=== PATIENT | male | born 1950 | race Asian ===

== ENCOUNTER 2019-05-11 06:54 | Inpatient (IN) | payer MEDICAID ==
[~2019-05-11] VITALS: Ht 172.7 cm; Wt 68.0 kg
[2019-05-11] VITALS (11 sets, daily range): BP systolic 92–114; BP diastolic 57–68
--- NOTE | 2019-05-11 06:54 | NUR ---
PT [facility]. TAKEN TO BED 3
--- NOTE | 2019-05-11 06:55 | NUR ---
ERMD AT BEDSIDE , PUT ON VENTILATOR WITH SETTINGS OF TIDAL VOLUMR 450, PEEP +5 PS 10 , 2L , BS 122 MG/DL , WITH HX CHRONIC RESP FAILURE TRACHE TO VENT, SEIZURE DYSPHAGIA, GT FEEDING, UTI, PNA, ANXIETY, SUBDURAL HEMATOMA, WITH SUBARACHNOID HEMORRHAGE, S/P CRANIOTOMY, SKULL FRACTURE, HYPOGLYCEMIA,ON FULL CODE, NKDA Addendum: 05/11/19 at 0800 by [email or web address] NEUROLOGICAL AT BASE LINE. Addendum: 05/11/19 at 0923 by [email or web address] R PUPIL 4MM RTL, L PUPIL 3 MM RTL.
--- NOTE | 2019-05-11 07:14 | NUR ---
X-Ray at bedside.
--- NOTE | 2019-05-11 07:20 | NUR ---
TRACH PT BROUGHT IN TO THE ED AT 0655. PLACED PT ON VENT SETTINGS FROM FACILITY; SIMV 8,450,+5, PS 10, AND Fi02 OF 30%. PT HANDED OVER TO AM SHIFT TO CONTINUE CARE.
[2019-05-11] MEDS ORDERED: FAMO-90 GT (07:25)
[2019-05-11] MEDS ORDERED: KEP500L GT (07:25)
[2019-05-11] MEDS ORDERED: MVI WITH MINERALS GT (07:25)
[2019-05-11] MEDS ORDERED: ASCO500T45 GT (07:25)
[2019-05-11] MEDS ORDERED: METO25TA GT (07:25)
[2019-05-11] MEDS ORDERED: ZINC220C28 GT (07:25)
[2019-05-11] MEDS ORDERED: COL100L GT (07:25)
[2019-05-11] MEDS ORDERED: NOVN SUBQ (07:25)
--- NOTE | 2019-05-11 07:25 | NUR ---
Elisabeth hill in [facility] - 05/11/19 at 0958 by [email or web address] RECIVED REPORT FROM
--- NOTE | 2019-05-11 07:44 | NUR ---
LAB AT BEDSIDE.
[2019-05-11] MEDS ORDERED: VANCOMYCIN 1,000 MG in DEXTROSE 5% 250 ML IV ONE (07:45)
[2019-05-11] MEDS ORDERED: PIPERACILLIN/TAZOBACTAM 3.375 GM in DEXTROSE 5% 50 ML IV ONE (07:45)
[2019-05-11] MEDS ORDERED: ALTEPLASE 2 MG VIAL MC ONE (07:45)
[2019-05-11] MEDS ORDERED: NACL 0.9% 1,000 ML IV ONE ×2 (07:45→16:35)
[2019-05-11 08:03] LABS: BASOPHILS # (AUTO) 0.1 K/uL (0.00-0.22); BASOPHILS % (AUTO) 0.4 % (0.0-2.0); EOSINOPHILS # (AUTO) 0.1 K/uL (0-0.4); EOSINOPHILS % (AUTO) 0.4 % (0.0-4.0); HEMATOCRIT 27.9 % (36-52); HEMOGLOBIN 8.7 g/dL (12.0-18.0); LYMPHOCYTES # (AUTO) 0.6 K/uL (2.0-11.5); LYMPHOCYTES % (AUTO) 4.2 % (20.5-51.1); MEAN CORPUSCULAR HEMOGLOBIN 26 pg (27-31); MEAN CORPUSCULAR HGB CONC 31 g/dL (33-37); MEAN CORPUSCULAR VOLUME 82.8 fL (80-94); MONOCYTES # (AUTO) 0.7 K/uL (0.8-1.0); MONOCYTES % (AUTO) 4.5 % (1.7-9.3); NEUTROPHILS # (AUTO) 13.3 K/uL (1.8-7.7); NEUTROPHILS % (AUTO) 90.5 % (42.2-75.2); PLATELET COUNT (AUTO) 413 K/uL (140-450); RED BLOOD CELL COUNT(AUTO) 3.37 MIL/uL (4.20-6.10); RED CELL DISTRIBUTION WIDTH 15.8 % (11.6-13.7); WHITE BLOOD COUNT (AUTO) 14.7 K/uL (4.8-10.8)
[2019-05-11] MEDS ORDERED: PIPERACILLIN/TAZOBACTAM 3.375 GM VIAL IV ONE (08:03)
[2019-05-11] MEDS ORDERED: VANCOMYCIN 1,000 MG VIAL ONE (08:04)
[2019-05-11 08:09] LABS: BILIRUBIN,URINE NEGATIVE (NEGATIVE); BLOOD, URINE 3+ (NEGATIVE); COLOR,URINE YELLOW (YELLOW); NITRITE, URINE NEGATIVE (NEGATIVE); UGLUCOSE TRACE (NEGATIVE)
[2019-05-11 08:19] LABS: PROTHROMBIN TIME 10.5 secs (10.8-13.4)
[2019-05-11 08:42] LABS: ALBUMIN 1.7 g/dL (3.4-5.0); ANION GAP 9.2 (8-16); CARBON DIOXIDE 32.6 mmol/L (21-32); CREATININE 0.6 mg/dL (0.6-1.3); POTASSIUM 3.8 mmol/L (3.5-5.1); TOTAL BILIRUBIN 0.2 mg/dL (0.0-1.0)
[2019-05-11 08:48] LABS: APPEARANCE,URINE SLIGHTLY HAZY (CLEAR)
[2019-05-11 08:49] LABS: LEUKOCYTE ESTERASE ,URINE TRACE (NEGATIVE)
[2019-05-11 08:50] LABS: WBC,URINE 0-5 /HPF (0-5)
[2019-05-11 08:51] LABS: URINE AMORPHOUS URATE 1+ /HPF (None Seen)
[2019-05-11] MEDS ORDERED: DOCUSATE SODIUM 100 MG GELCAP PO PRN (09:30)
[2019-05-11] MEDS ORDERED: HYDROcodone/APAP 5/325 MG 1 TAB TAB PO PRN (09:30)
[2019-05-11] MEDS ORDERED: ACETAMINOPHEN 325 MG TAB PO PRN (09:30)
[2019-05-11] MEDS ORDERED: MORPHINE SULFATE 2 MG/ML SYR IVP PRN (09:30)
[2019-05-11] MEDS ORDERED: LORazepam 2 MG/ML VIAL IM/IVP PRN (09:30)
[2019-05-11] MEDS ORDERED: ZOLPIDEM 5 MG TAB PO PRN (09:30)
[2019-05-11] MEDS ORDERED: ONDANSETRON 4 MG/2 ML VIAL IM/IVP PRN (09:30)
--- NOTE | 2019-05-11 09:40 | NUR ---
called warehouse consultant left v-mail for tele bed
[2019-05-11 09:57] LABS: BARBITURATE, URINE NEG. ng/ml (NEG <=200); BENZODIAZEPINE, URINE NEG. ng/mL (NEG <=200); CANNABINOID, URINE NEG. ng/mL (NEG <=50); COCAINE, URINE NEG. ng/mL (NEG <=300); OPIATE, URINE NEG. ng/mL (NEG <=2000); PHENCYCLIDINE SCREEN,URINE NEG. ng/mL (NEG <=25)
--- NOTE | 2019-05-11 10:04 | NUR ---
pt on tele hold in er
[2019-05-11 10:05] LABS: CHOL/HDL RATIO 4.8 (1-4.5); FREE T4 (FREE THYROXINE) 1.26 ng/dL (0.76-1.46); MAGNESIUM 2.5 mg/dL (1.8-2.4); THYROID STIMULATING HORMONE 4.48 uIU/mL (0.34-3.74)
--- NOTE | 2019-05-11 10:05 | NUR ---
STABLE GOOD CHEST RISE DEEP TRACHEAL SUCTION FOR LARGE THICK PALE YELLOW SECRETIONS AIRWAY PATENT
[2019-05-11] MEDS: NACL 0.9% 1,000 ML IV SCH ×2 (10:13→21:14)
--- NOTE | 2019-05-11 11:30 | NUR ---
CHANGED POSITION TO RIGHT SIDE.
--- NOTE | 2019-05-11 11:36 | NUR ---
REPORTED GIVEN TO YOVANY CHARGE NURSE.
--- NOTE | 2019-05-11 12:11 | NUR ---
NO EVIDENCE OF PULMONARY DISTRESS OTED EQUAL CHEST RISE DEEP TRACHEAL SUCTIONG FOR MODERATE PALE YELLOW SECRETIONS AIRWAY PATENT Addendum: 05/11/19 at 1218 by MCACPA OTED = NOTED
--- NOTE | 2019-05-11 13:33 | NUR ---
CHANGED POSITION TO LEFT SIDE.
--- NOTE | 2019-05-11 14:30 | NUR ---
Patient will be admitted to care of DR HER. Admited to TELE. Will go to room 108B. Belongings list completed. Report to PRINCESS BURRELL.
--- NOTE | 2019-05-11 14:30 | NUR ---
RECEIVED PATIENT FROM ED NURSE RENZO VIA JAZMYNE. PATIENT IS AWAKE. RESPIRATIONS EVEN AND UNLABORED. VENTILATOR DEPENDENT. FI02: 28, VT: 450; RATE: 8; FLOW: 40; PEEP: 5, PS:10. RT IS AT BEDSIDE AT THIS TIME. LUNCH SOUNDS RHONCHI. VISIBLE CHEST RISE NOTED. ON TELE MONITORING. ABDOMEN SOFT, AND NONTENDER. G-TUBE IN PLACE, NO FEEDING RUNNING AT THIS TIME. DRESSING INTACT. SCAR FROM SURGERY IN THE LEFT ABDOMEN. SKIN TEAR IN THE LEFT EAR, PRESSURE ULCER IN THE SACRUM. ED NURSE TOOK PHOTOS. DRESSINGS DRY AND INTACT. RIGHT UPPER PICC LINE NOTED RUNNING NS WIDE OPEN. PATIENT IS BEDBOUND. FALL PRECAUTIONS: YELLOW BAND, YELLOW GOWN, YELLOW SOCKS, FALLING STAR POSTED OUTSIDE THE ROOM. BED IN LOW POSITION. CALL LIGHT IS WITHIN REACH. WILL CONTINUE TO MONITOR
--- NOTE | 2019-05-11 14:35 | NUR ---
VITAL SIGNS CHECK, MRSA NARES SWAB COLLECTED. BP IS 104/61, HR: 112, O2SAT 100, VENT. RESP 18, TEMP 98. WILL CONTINUE TO MONITOR
--- NOTE | 2019-05-11 14:40 | NUR ---
(LATE ENTRY) TRANSFERRED PATIENT TO [facility] 108-B REMOVED PATIENT FORM VENTILATOR PLACED ON SUPPLEMENTAL OXYGEN AT 15 LPM VIA E-TANK TO HME/INLINE SUCTION CATHETER/TRACH BAG DEPRESSION EVERY 6-8 SECONDS GOOD CHEST RISE TOLERATED TRANSFER WELL WITHOUT INCIDENT SATURATION 100% HR 110
--- NOTE | 2019-05-11 15:55 | NUR ---
BP IS 90/68, HR 106, O2SAT 100%. MADE AWARE TO DR. URIBE FOR BOLUS ORDER.
--- NOTE | 2019-05-11 15:58 | NUR ---
BOLUSING PATIENT WITH NS WIDE OPEN TO INCREASE BP WNL.
[2019-05-11] MEDS ORDERED: NACL 0.9% 1,000 ML IV SCH (16:00)
--- NOTE | 2019-05-11 16:00 | NUR ---
MADE AWARE TO DR. URIBE TO ORDER FNS AND WOUND CONSULT FOR LOW PARVEEN SCORE AND WOUNDS.
--- NOTE | 2019-05-11 16:01 | NUR ---
RESTING COMFORTABLE NO RESPIRATORY DISTRESS NOTED DEEP TRACHEAL SUCTION FOR SMALL THICK PALE YELLOW SECRETIONS AIRWY PATENT
--- NOTE | 2019-05-11 16:10 | NUR ---
RT IS AT BEDSIDE
--- NOTE | 2019-05-11 16:13 | NUR ---
VITAL SIGNS: BP: 97/81, HR: 105, O2SAT 100% VENT, RESP 18, TEMP 97.9. BP IS TRENDING UP.WILL CONTINUE TO MONITOR
[2019-05-11] MEDS ORDERED: DEXTROSE 50% 50 ML SYR IVP PRN (16:50)
--- NOTE | 2019-05-11 16:54 | NUR ---
PATIENT IS RESTING QUITELY AT THIS TIME. NO SIGNS OF DISTRESS NOTED. ASPIRATIONS, FALL, SEIZURE PRECAUTIONS IN PLACE. BED IN LOW POSITION. CALL LIGHT IS WITHIN REACH. VENTILATOR WORKING. WILL CONTINUE TO MONITOR
--- NOTE | 2019-05-11 16:55 | NUR ---
PATIENT'S BP NOW IS 107/64, HR 105, O2SAT 100%
--- NOTE | 2019-05-11 17:00 | NUR ---
DR. URIBE AND STUDENT IS AT BEDSIDE EXAMINING THE PATIENT
--- NOTE | 2019-05-11 17:20 | NUR ---
NEW BAG OF NS TO BOLUS PATIENT
--- NOTE | 2019-05-11 17:40 | NUR ---
STABLE NO SOB NOTED GOOD CHEST RISE DEEP TRACHEAL SUCTION FOR SMALL THIN PALE YELLOW SECRETIONS AIRWAY PATENT
--- NOTE | 2019-05-11 17:54 | NUR ---
BP NOW 114/69, HR 104, O2SAT 100% VENT. PATIENT IS SLEEPING COMFORTABLY. NO SIGNS OF DISTRESS NOTED. BED IN LOW POSITION. CALL LIGHT IS WITHIN REACH. WILL CONTINUE TO MONITOR
--- NOTE | 2019-05-11 18:40 | NUR ---
PATIENT IS SLEEPING COMFORTABLY AT THIS TIME. BP IS 109/65, HR 106, O2SAT 100% VENT. BED IN LOW POSITION. CALL LIGHT IS WITHIN REACH. WILL CONTINUE TO MONITOR
--- NOTE | 2019-05-11 18:46 | NUR ---
HYPEROXYGENATED PATIENT PRIOR TO DEEP SUCTIONING. SMALL YELLOW SECRETIONS CAME OUT. PATIENT O2SAT IS 100%, BP 106/68, HR: 108. WILL CONTINUE TO MONITOR
--- NOTE | 2019-05-11 19:12 | NUR ---
ENDORSED PATIENT TO THE SMART ENERGY SPECIALIST NURSE FOR CONTINUITY OF CARE. NO SOB. BED IN LOW POSITION. CALL LIGHT IS WITHIN REACH. PATIENT IS IN STABLE CONDITION
--- NOTE | 2019-05-11 19:13 | NUR ---
RECEIVED BEDSIDE REPORT FROM AM SHIFT NURSE. PATIENT IS LYING IN BED, RESTING WITH EYES CLOSED. NO SOB OR DISTRESS NOTED, ON TRACH TO MECHANICAL VENTILATOR. PICC LINE ON RIGHT UPPER ARM, PATENT, INTACT AND INFUSING WELL. PATIENT NOTED WITH LEFT EAR ABRASION AND SACRAL ULCER. G-TUBE IN PLACE. GIVENS CATHETER IN PLACE, DRAINING WELL. BOARD UPDATED. BED IN LOW, SAFETY MEASURES IN PLACE. SEIZURE PRECAUTIONS IN PLACE. CALL LIGHT PLACED WITHIN PATIENT REACH. WILL CONTINUE TO MONITOR PATIENT.
--- NOTE | 2019-05-11 19:23 | NUR ---
RECEIVED PT FROM DAY SHIFT ON SIMV 8,500,PS 10,+5, 28%. VENTILATOR PLUGGED INTO RED OUTLET. BMV AT HEAD OF BED. ALARMS AUDIBLE AND WORKING. TRACHEOSTOMY IS INTACT AND SECURED WITH A TRACH TIE. PT IS IN NO DISTRESS. WILL CONT TO MONITOR.
[2019-05-11] MEDS: INSULIN NPH HUMAN ISOPHANE 100 UNIT/ML VIAL SUBQ SCH (21:00)
[2019-05-11] MEDS: PIPERACILLIN/TAZOBACTAM 3.375 GM in DEXTROSE 5% 50 ML IV SCH (21:11)
[2019-05-11] MEDS: levETIRAcetam 100 MG/ML ORASYR GT SCH (21:18)
--- NOTE | 2019-05-11 21:33 | NUR ---
FAMILY MEMBERS AT BESIDE AT THIS TIME TO SEE PATIENT. PATIENT RESTING WITH EYES CLOSED. NO DISTRESS NOTED.
[2019-05-11] MEDS: BLOOD GLUCOSE MONITORING 1 DEV DEV FS SCH (21:35)
--- NOTE | 2019-05-11 21:37 | NUR ---
HUMULIN N HELD AT THIS TIME. PATIENT HAS A BLOOD GLUCOSE RESULT OF 108 AND PATIENT IS NOT ON FEEDING. WILL CONTINUE TO MONITOR PATIENT.
--- NOTE | 2019-05-11 22:30 | NUR ---
PATIENT CLEANED WITH CHG WIPES AND REPOSITIONED WITH CNAS AT THIS TIME.
[2019-05-11] MEDS: DEXT 5% /NACL 0.9% 1,000 ML IV SCH (23:24)
[2019-05-12] VITALS (17 sets, daily range): BP systolic 106–125; BP diastolic 62–72
--- NOTE | 2019-05-12 00:13 | NUR ---
VITAL SIGNS TAKEN AT THIS TIME. NO DISTRESS NOTED. WILL CONTINUE TO MONITOR PATIENT AT THIS TIME.
--- NOTE | 2019-05-12 02:19 | NUR ---
ROUNDS DONE AT THIS TIME. NO SOB OR DISTRESS NOTED. ON MECHANICAL VENTILATOR. CALL LIGHT WITHIN PATIENT REACH. WILL CONTINUE TO MONITOR PATIENT.
[2019-05-12] MEDS: PIPERACILLIN/TAZOBACTAM 3.375 GM in DEXTROSE 5% 50 ML IV SCH ×3 (04:58→21:57)
--- NOTE | 2019-05-12 05:10 | NUR ---
PT REMAINS ON DOCUMENTED SETTINGS. VENT PLUGGED INTO RED OUTLET. BMV AT HEAD OF BED. ALARMS AUDIBLE AND WORKING. TRACH IS SECURED AND INTACT. WILL CONT TO MONITOR
[2019-05-12] MEDS ORDERED: KCL 20 MEQ/WATER INJ PREMIX 200 ML IV PRN (05:35)
[2019-05-12] MEDS: INSULIN LISPRO SLIDING SCALE 100 UNITS/ML VIAL SUBQ PRN (06:33)
[2019-05-12] MEDS: BLOOD GLUCOSE MONITORING 1 DEV DEV FS SCH ×4 (06:33→21:56)
--- NOTE | 2019-05-12 06:35 | NUR ---
PATIENT HAD A BLOOD GLUCOSE RESULT OF 167 WITH 2 UNITS OF REGULAR HUMALOG INSULIN GIVEN AT THIS TIME. WILL CONTINUE TO MONITOR PATIENT.
--- NOTE | 2019-05-12 06:36 | NUR ---
PATIENT IN STABLE CONDITION. NO SOB OR DISTRESS NOTED. ON MECHANICAL VENTILATOR, TOLERATING SETTINGS WELL. CALL LIGHT PLACED WITHIN PATIENT REACH. WILL ENDORSE TO AM SHIFT NURSE FOR CONTINUITY OF CARE.
[2019-05-12 06:54] LABS: BASOPHILS # (AUTO) 0.1 K/uL (0.00-0.22); EOSINOPHILS # (AUTO) 0.1 K/uL (0-0.4); EOSINOPHILS % (AUTO) 0.8 % (0.0-4.0); HEMOGLOBIN 7.9 g/dL (12.0-18.0); LYMPHOCYTES # (AUTO) 1.3 K/uL (2.0-11.5); LYMPHOCYTES % (AUTO) 11.7 % (20.5-51.1); MEAN CORPUSCULAR HEMOGLOBIN 26 pg (27-31); MEAN CORPUSCULAR HGB CONC 32 g/dL (33-37); MEAN CORPUSCULAR VOLUME 82.5 fL (80-94); MONOCYTES # (AUTO) 0.5 K/uL (0.8-1.0); MONOCYTES % (AUTO) 4.7 % (1.7-9.3); NEUTROPHILS # (AUTO) 9.3 K/uL (1.8-7.7); NEUTROPHILS % (AUTO) 81.8 % (42.2-75.2); PLATELET COUNT (AUTO) 404 K/uL (140-450); RED BLOOD CELL COUNT(AUTO) 3.02 MIL/uL (4.20-6.10); RED CELL DISTRIBUTION WIDTH 16.3 % (11.6-13.7); WHITE BLOOD COUNT (AUTO) 11.3 K/uL (4.8-10.8)
--- NOTE | 2019-05-12 06:59 | NUR ---
RECEIVED ON A [employer]APE R860 VENTILATOR PLUGGED INTO RED OUTLET TOLERATING WELL WITHOUT INCIDENT TO A PORTEX DCT #8 AIRWAY SECURED WITH A EUSEBIO TRACH TIE CUFF PRESSURE CHECKED NOTED LLOC QUIET RESTING WELL WITHOUT PULMONARY DISTRESS NOTED GOOD CHEST RISE AND AERATION THROUGHOUT BILATERAL LUNG BARNES AIRWAY PATENT
--- NOTE | 2019-05-12 07:14 | NUR ---
RECEIVED BEDSIDE REPORT FROM PM RN PT ON TRACH TO VENT. RIGHT UPPER ARM PICC LINE IN PLACE. GIVENS CATH IN PLACE. GTUBE IN PLACE. NO TUBE FEEDING INFUSING AT THIS MOMENT. WAS INFORMED BY PM RN AWAITING FNS CONSULT. ALL SAFETY MEASURES ARE IN PLACE WILL CONTINUE TO MONITOR. VENT IN RED PLUG.
[2019-05-12 07:18] LABS: ANION GAP 12.6 (8-16); CARBON DIOXIDE 25.1 mmol/L (21-32); CREATININE 0.6 mg/dL (0.6-1.3)
[2019-05-12 07:25] LABS: MAGNESIUM 1.9 mg/dL (1.8-2.4); PHOSPHORUS 1.2 mg/dL (2.5-4.9)
[2019-05-12 07:30] LABS: POTASSIUM 2.7 mmol/L (3.5-5.1)
[2019-05-12] MEDS ORDERED: DEXTROSE 50% 50 ML SYR IVP PRN (07:50)
[2019-05-12] MEDS ORDERED: INSULIN LISPRO SLIDING SCALE 100 UNITS/ML VIAL SUBQ PRN (07:50)
[2019-05-12] MEDS: DEXT 5% /NACL 0.9% 1,000 ML IV SCH (08:00)
[2019-05-12] MEDS ORDERED: POTASSIUM CHLORIDE 40 MEQ, LIDOCAINE MPF 1% 25 MG in NACL 0.9% 250 ML IV SCH (08:30)
[2019-05-12] MEDS: levETIRAcetam 100 MG/ML ORASYR GT SCH ×2 (08:56→21:57)
[2019-05-12] MEDS: FAMOTIDINE 20 MG TAB GT SCH (08:56)
[2019-05-12] MEDS: LACTOBACILLUS RHAMNOSUS GG 1 EACH CAP GT SCH (08:56)
[2019-05-12] MEDS: INSULIN NPH HUMAN ISOPHANE 100 UNIT/ML VIAL SUBQ SCH ×2 (08:58→21:55)
--- NOTE | 2019-05-12 09:15 | NUR ---
MORNING MEDICATIONS ADMINISTERED VIA GTUBE. GTUBE FLUSHED AND PATENT. ALL SAFETY MEASURES ARE IN PLACE. PT RIGHT UPPER ARM PICC LINE INFUSING WITH NO SIGNS OF INFILTRATION OR INFLAMMATION. WILL CONTINUE TO MONITOR PATIENT.
--- NOTE | 2019-05-12 09:45 | NUR ---
RESTING COMFORTABLY NO EVIDENCE OF RESPIRATORY DISTRESS NOTED EQUAL CHEST RISE DEEP TRACHEAL SUCTION FOR MODERATE THICK PALE YELLOW SECRETIONS OROPHARYNX SUCTION FOR COPIOUS THICK GREEN SECRETIONS AIRWAY PATENT
--- NOTE | 2019-05-12 10:33 | NUR ---
PATIENT HAS BEEN SCREENED AND CATEGORIZED HIGH NUTRITION RISK. PATIENT WILL BE SEEN WITHIN 1-2 DAYS OF ADMISSION. 05/12/[address]
--- NOTE | 2019-05-12 11:01 | NUR ---
NO DISTRESS NOTED GOOD CHEST RISE AND AERATION THROUGHOUT BILATERAL LUNG BARNES AIRWAY PATENT
--- NOTE | 2019-05-12 11:24 | NUR ---
FREQUENT ROUNDING ON PT PT APPEARS STABLE AND IN NO APPARENT DISTRESS. ALL SAFETY MEASURES ARE IN PLACE WILL CONTINUE TO MONITOR.
[2019-05-12] MEDS ORDERED: BLOOD GLUCOSE MONITORING 1 DEV DEV FS SCH (11:30)
--- NOTE | 2019-05-12 13:00 | NUR ---
PT FINGERSTICK ACCU CHECK 47. ADMINISTERED D50 PER PRN ORDER. PT APHASIC. PT ON TELE MONITORING. WILL CONTINUE TO MONITOR PT FOR SIGNS AND SYMPTOMS OF HYPO AND HYPERGLYCEMIA. WILL REASSESS PT BLOOD SUGAR IN 30 MINUTES TO EVALUATE MEDICATION AFFECTS.
--- NOTE | 2019-05-12 13:45 | NUR ---
PT ASSESSMENT PT APPEARS STABLE AND IN NO APPARENT DISTRESS. ALL SAFETY MEASURES ARE IN PLACE VITALS WITHIN NORMAL LIMITS. WILL CONTINUE TO MONITOR.
--- NOTE | 2019-05-12 14:12 | NUR ---
NO APPARENT DISTRESS NOTED EQUAL CHEST RISE DEEP TRACHEAL SUCTION FOR MODERATE THICK PALE YELLOW SECRETIONS AIRWAY PATENT
[2019-05-12] MEDS ORDERED: VANCOMYCIN PER PHARMACY MC PRN (14:45)
[2019-05-12] MEDS ORDERED: ALBUTEROL SULFATE/IPRATROPIU 3 ML SOL IH PRN (14:45)
--- NOTE | 2019-05-12 15:34 | NUR ---
05/12/19 INITIAL ASSESSMENT COMPLETED PLEASE REFER TO NUTRITION ASSESSMENT UNDER CARE ACTIVITY FOR ESTIMATED NUTRITIONAL NEEDS. 1. RECOMMEND GLUCERNA 1.2 @ 70ML/HR. START RATE AT 25 ML/HR AND INCREASE BY 25 ML/HR Q4H UNTIL GOAL RATE IS ACHIEVED. -THIS WILL PROVIDE 1680 ML OF VOLUME, 2016 KCALS, AND 101 GMS OF PROTEIN. THIS IS MEETING 96% OF PTS CALORIC NEEDS AND 96% OF PTS PROTEIN NEEDS. 2. FREE WATER FLUSH: 165 ML Q6H 3. RECOMMEND [place]ITA BID 4. RD TO FOLLOW-UP 2-3 DAYS, HIGH RISK TAM ISLAS RD
--- NOTE | 2019-05-12 15:34 | NUR ---
FREQUENT ROUNDING ON PT PT APPEARS STABLE AND IN NO APPARENT DISTRESS. ALL SAFETY MEASURES ARE IN PLACE WILL CONTINUE TO MONITOR.
[2019-05-12] MEDS: VANCOMYCIN 1,000 MG in NACL 0.9% 250 ML IV SCH (15:40)
--- NOTE | 2019-05-12 15:58 | NUR ---
RESTING COMFORTABLE NO SOB NOTED DEEP TRACHEAL SUCTION FOR SMALL THICK PALE YELLOW SECRETIONS AIRWAY PATENT
--- NOTE | 2019-05-12 16:23 | NUR ---
FINGER STICK GLUCOSE 139. WITHIN NORMAL LIMITS. NO COVERAGE NEEDED PER SLIDING SCALE. WILL CONTINUE TO MONITOR PT.
--- NOTE | 2019-05-12 17:18 | NUR ---
GTUBE FEEDING STARTED. PT HEAD OF BED ELEVATED ABOVE 30 DEGREES. ADDITIONAL SUPPLEMENT ADMINISTERED VIA GTUBE. PT ON TRACH TO VENT PT RESTING COMFORTABLE/ PT ON CONTINOUS SPO2 MONITORING. GIVENS CATH IN PLACE. ALL SAFETY MEASURES ARE IN PLACE. WILL CONTINUE TO MONITOR.
--- NOTE | 2019-05-12 17:45 | NUR ---
STABLE RESTING WELL NO SOB NOTED GOOD CHEST RISE AIRWAY PATENT
[2019-05-12] MEDS: NACL 0.9% 1,000 ML IV SCH (18:28)
[2019-05-12] MEDS ORDERED: ACETYLCYSTEINE 10% (100 MG/ML) 100 MG/ML VIAL ONE (18:46)
[2019-05-12] MEDS: ALBUTEROL SULFATE/IPRATROPIU 3 ML SOL IH SCH (18:49)
[2019-05-12] MEDS: ACETYLCYSTEINE 10% (100 MG/ML) 100 MG/ML VIAL INH SCH (18:50)
--- NOTE | 2019-05-12 18:55 | NUR ---
RECEIVED PT FROM DAY SHIFT ON SIMV 8, 450,PS10,+5,28%. VENT PLUGGED INTO RED OUTLET. BMV AT HEAD OF BED. ALARMS AUDIBLE AND WORKING. TRACH PORTEX 8 IS SECURED AND INTACT. PT REMAINS COMFORTABLE. WILL CONT TO MONITOR
--- NOTE | 2019-05-12 19:31 | NUR ---
ENDORSED PT TO PM RN PT APPEARS STABLE AND IN NO APPARENT DISTRESS. ALL SAFETY ARE IN PLACE. TRACH TO VENT IN PLACE. GTUBE IN FUSING. HEAD OF BED ELEVATED ABOVE 30 DEGREES. RIGHT UPPER ARM PICC IN PLACE.
--- NOTE | 2019-05-12 19:32 | NUR ---
RECEIVED BEDSIDE REPORT FROM AM SHIFT NURSE. PATIENT IS LYING IN BED WITH EYES CLOSED. NO SOB OR DISTRESS NOTED. PATIENT IS TRACH TO MECHANICAL VENTILATOR, TOLERATED VENT SETTINGS WELL. IV ACCESS ON RIGHT UPPER ARM PICC LINE. GIVENS CATHETER IN PLACE, DRAINING WELL. G-TUBE IN PLACE, PATENT, INTACT AND INFUSING WELL. DRESSING NOTED ON LEFT EAR ABRASION AND ON SACRAL ULCER. BED IN LOW, SAFETY MEASURES IN PLACE. ON ASPIRATION AND SEIZURE PRECAUTION. CALL LIGHT WITHIN PATIENT REACH. WILL CONTINUE TO MONITOR PATIENT.
--- NOTE | 2019-05-12 21:03 | NUR ---
ROUTINE VENT CHECKED. SX SCANT AMOUNT OF THIN YELLOW SECRETION. PT REMAINS IN NO DISTRESS. WILL CONT TO MONITOR.
--- NOTE | 2019-05-12 21:52 | NUR ---
HUMULIN N NOT SCANNING, MANUAL INPUT DONE. VERIFIED BY RN, ELVIN. MNUREG
--- NOTE | 2019-05-12 21:56 | NUR ---
PATIENT HAD A BLOOD GLUCOSE RESULT OF 129 WITH NO INSULIN COVERAGE NEEDED AT THIS TIME.
--- NOTE | 2019-05-12 23:30 | NUR ---
ROUNDS DONE. NO DISTRESS NOTED. TOLERATING VENT SETTINGS WELL. WILL CONTINUE TO MONITOR PATIENT.
[2019-05-13] VITALS (11 sets, daily range): BP systolic 115–125; BP diastolic 66–80
--- NOTE | 2019-05-13 00:30 | NUR ---
VITALS TAKEN AT THIS TIME. NO DISTRESS NOTED. WILL CONTINUE TO MONITOR PATIENT.
--- NOTE | 2019-05-13 02:35 | NUR ---
ROUNDS DONE. PATIENT TOLERATING VENT SETTINGS WELL. NO SOB OR DISTRESS NOTED. WILL CONTINUE TO MONITOR PATIENT.
[2019-05-13] MEDS: VANCOMYCIN 1,000 MG in NACL 0.9% 250 ML IV SCH ×2 (02:58→15:23)
--- NOTE | 2019-05-13 04:20 | NUR ---
VITALS TAKEN AT THIS TIME. NO DISTRESS NOTED. CALL LIGHT WITHIN PATIENT REACH. WILL CONTINUE TO MONITOR PATIENT.
[2019-05-13] MEDS: PIPERACILLIN/TAZOBACTAM 3.375 GM in DEXTROSE 5% 50 ML IV SCH ×3 (04:59→20:38)
--- NOTE | 2019-05-13 05:11 | NUR ---
PT REMAINS ON DOCUMENTED SETTINGS. VENT PLUGGED INTO RED OUTLET. BMV AT HEAD OF BED. ALARMS AUDIBLE AND WORKING. TRACH IS SECURED AND INTACT. WILL ENDORSE PT TO DAY SHIFT
[2019-05-13 06:20] LABS: BASOPHILS # (AUTO) 0.1 K/uL (0.00-0.22); BASOPHILS % (AUTO) 0.6 % (0.0-2.0); EOSINOPHILS # (AUTO) 0.1 K/uL (0-0.4); EOSINOPHILS % (AUTO) 1.3 % (0.0-4.0); HEMATOCRIT 24.9 % (36-52); LYMPHOCYTES # (AUTO) 1.5 K/uL (2.0-11.5); LYMPHOCYTES % (AUTO) 13.6 % (20.5-51.1); MEAN CORPUSCULAR HEMOGLOBIN 26 pg (27-31); MEAN CORPUSCULAR HGB CONC 32 g/dL (33-37); MEAN CORPUSCULAR VOLUME 81.3 fL (80-94); MONOCYTES # (AUTO) 0.5 K/uL (0.8-1.0); MONOCYTES % (AUTO) 4.4 % (1.7-9.3); NEUTROPHILS # (AUTO) 8.9 K/uL (1.8-7.7); NEUTROPHILS % (AUTO) 80.1 % (42.2-75.2); PLATELET COUNT (AUTO) 452 K/uL (140-450); RED BLOOD CELL COUNT(AUTO) 3.07 MIL/uL (4.20-6.10); RED CELL DISTRIBUTION WIDTH 16.6 % (11.6-13.7); WHITE BLOOD COUNT (AUTO) 11.1 K/uL (4.8-10.8)
[2019-05-13 06:30] LABS: ANION GAP 9.3 (8-16); CARBON DIOXIDE 28.2 mmol/L (21-32); CREATININE 0.6 mg/dL (0.6-1.3); POTASSIUM 3.5 mmol/L (3.5-5.1)
[2019-05-13] MEDS: BLOOD GLUCOSE MONITORING 1 DEV DEV FS SCH ×4 (06:30→20:31)
[2019-05-13] MEDS: INSULIN LISPRO SLIDING SCALE 100 UNITS/ML VIAL SUBQ PRN (06:35)
--- NOTE | 2019-05-13 06:37 | NUR ---
PATIENT HAD A BLOOD GLUCOSE RESULT OF 156 WITH 2 UNITS OF REGULAR HUMALOG INSULIN ADMINISTERED. WILL CONTINUE TO MONITOR PATIENT.
--- NOTE | 2019-05-13 06:37 | NUR ---
PATIENT IN STABLE CONDITION. TOLERATING VENT SETTINGS WELL. WILL ENDORSE TO AM SHIFT NURSE FOR CONTINUITY OF CARE.
--- NOTE | 2019-05-13 07:12 | NUR ---
RECEIVED REPORT FROM NIGHT NURSE. PT IN BED ASLEEP, HEAD OF BED AT 30 DEGRESS, NO DISTRESS NOTED, FLACC 0. RESPIRATIONS EVEN AND UNLABORED ON TRACH TO VENT. LEFT EAR ABRASION PRESENT, COVERED WITH OPTIFOAM. BUTTOCKS PRESSURE ULCER PRESENT, OPTIFOAM DRESSING. IV IN PLACE PATENT AND ASYMPTOMATIC INFUSING PER ORDER IN R UA PICC LINE. GTUBE PRESENT WITH GLUCERNA 1.2 FEEDING PER ORDER. GIVENS IN PLACE. PT BEDBOUND. SAFETY MEASURES IN PLACE. CALL LIGHT WITHIN REACH. BED IN LOW POSITION. WILL CONTINUE TO MONITOR.
[2019-05-13] MEDS: ALBUTEROL SULFATE/IPRATROPIU 3 ML SOL IH SCH ×3 (07:32→19:32)
[2019-05-13] MEDS: ACETYLCYSTEINE 10% (100 MG/ML) 100 MG/ML VIAL INH SCH ×3 (07:33→19:32)
[2019-05-13] MEDS ORDERED: FUROSEMIDE 20 MG/2 ML VIAL IVP SCH (09:00)
[2019-05-13] MEDS: levETIRAcetam 100 MG/ML ORASYR GT SCH ×2 (09:11→20:37)
[2019-05-13] MEDS: INSULIN NPH HUMAN ISOPHANE 100 UNIT/ML VIAL SUBQ SCH ×2 (09:11→20:49)
[2019-05-13] MEDS: FAMOTIDINE 20 MG TAB GT SCH (09:11)
[2019-05-13] MEDS: LACTOBACILLUS RHAMNOSUS GG 1 EACH CAP GT SCH (09:11)
--- NOTE | 2019-05-13 09:19 | NUR ---
MEDICATIONS ADMINISTERED PER ORDER. PT TOLERATED WELL, NO DISTRESS NOTED. FLACC 0. SAFETY MEASURES IN PLACE. CALL LIGHT WITHIN REACH, WILL CONTINUE TO MONITOR.
--- NOTE | 2019-05-13 09:53 | NUR ---
FAMILY MEMBERS AT THE BEDSIDE, INFORMED OF PTS STATUS, FAMILY MEMBERS VERBALIZED UNDERSTANDING. PT IN STABLE CONDITION. NO DISTRESS NOTED. FLACC 0. WILL CONTINUE TO MONITOR.
--- NOTE | 2019-05-13 10:10 | NUR ---
WOUND CARE EVALUATION NOTE: REASON FOR EVALUATION: LOW PARVEEN SCALE AND SACRAL WOUND SKIN ASSESSMENT DONE WITH THIS 68 Y/O MALE PT ADMITTED FROM [facility] [place] [facility] WITH INITIAL DX DESATURATION TO 85%. PAST MEDICAL HX INCLUDES TRAUMATIC BRAIN INJURY WITH SUBARACHNOID HEMORRHAGE AND SUBDURAL HEMATOMA STATUS POST CRANIOTOMY, SEIZURE DISORDER, GERD AND DM. PT. ADMITTED WITH MULTIPLE PRESSURE ULCER WOUNDS, TRACH TO VENT AND G-TUBE. ALBUMIN 1.7.ALL ABOVE INFORMATION OBTAINED FROM ADMISSION H&P. PT IS AWAKE. SKIN IS WARM AND DRY, BLE NO HAIR GROWTH, NO EDEMA. DORSAL PEDAL PULSES PRESENT AND NORMAL. CAPILLARY REFILLED < 2 SEC. X 10 TOES. INCONTINENT OF BOWEL,F/C PATENT WITH MODERATE AMOUNT YELLOW COLOR URINE OUT PUT OBSERVED. PLAN OF CARE DISCUSSED WITH PRIMARY RN. POC AND COMORBIDITIES RELATED DELAY WOUND HEALING AND FURTHER SKIN BREAKS EXPLAINED TO COUSIN, ALL QUESTION ANSWERED. INTEGUMENTARY: -RIGHT PARIETAL S/P CRANIOTOMY HEALED SURGICAL SCAR, SOFT NON- BULGING -TRACH SITE KRISTIN STOMA SKIN DRY AND CLEAN. SKIN INTACT. - GT SITE KRISTIN STOMA WITH SKIN INTACT. -RIGHT LOWER ABDOMEN OLD HEALED SCAR HARD TO TOUCH -PRESSURE ULCER STAGE 4 ON SACROCOCCYX EXTENDED TO RIGHT AND LEFT INNER BUTTOCK, 5X10X0.2CM, IRREGULAR WOUND SHAPE WOUND BED WITH 30% OF DTI WITH MAROON IN COLOR, 70% OF GRANULATION TISSUE WITH MUSCLE OBSERVED, MOIST, NO ODOR, WOUND EDGE FLAT, KRISTIN-WOUND SKIN LIGHT PURPLE IN COLOR, MOIST AND DENUDED - PRESSURE ULCER UN-STAGEABLE, LEFT EAR 1X1CM DARK BROWN WOUND BED WITH KRISTIN WOUND 3X2CM DENUDED SKIN, MOIST NO ODOR -RIGHT AND LEFT HEELS DRY THICK CALLUS WITH MULTIPLE FISSURE RECOMMENDATIONS: -PAINT LEFT EAR AND RIGHT /LEFT HEELS WITH BETADINE SOLUTIONS BID AND NEPHROLOGIST, OFFLOADING LEFT EAR - CLEANSE SACRALCOCCYX, R/L BUTTOCKS WOUND CLEANSING SOLUTION AND APPLY THERAHONEY GEL COVER WITH DRY DRESSING QD AND PRN IF SOILING -APPLY HEEL PROTECTORS TO BOTH HEELS AT ALL TIMES -OFFLOAD BILATERAL HEELS BY PLACING PILLOWS UNDER CALVES UNLESS OTHERWISE CONTRAINDICATED -PRESSURE REDISTRIBUTION SURFACE THERAPY -TURN AND REPOSITION Q2H, OFFLOAD SACRALCOCCYX AND LEFT EAR BY POSITIONING WITH PILLOW RIGHT AND LEFT -CONTINUE TO FOLLOW RD RECOMMENDATIONS ALL ABOVE RECOMMENDATIONS DISCUSSED WITH PRIMARY RN. WILL FOLLOW UP PT Q7-10 DAYS. PLEASE CONTACT WOUND CARE NURSE FOR ANY QUESTION AND CHANGE OF WOUND CONDITION.
--- NOTE | 2019-05-13 10:34 | NUR ---
PT TRANSFERRED TO WOUND BED AT THIS TIME. NO DISTRESS NOTED, FLACC 0.
--- NOTE | 2019-05-13 10:55 | NUR ---
REQUESTED ORDER TO CHANGE GIVENS, DUE TO APPEARANCE OF HAVING BEEN IN PLACE FOR MANY DAYS, TUBING DIRTY, GLANS ALSO DIRTY. UPON REMOVAL OF GIVENS, THE TIP WAS VERY DIRTY WITH BUILD UP. NEW GIVENS INSERTED AT THIS TIME. WILL CONTINUE TO MONITOR.
--- NOTE | 2019-05-13 12:05 | NUR ---
DISCHARGE PLANNING: THIS IS A 68 Y/O MALE PATIENT FROM [facility] [place], WHO CAME IN DUE TO DESATURATION TO 85%. PAST MEDICAL HISTORY INCLUDE TRAUMATIC BRAIN INJURY WITH SUBARACHNOID HEMORRHAGE AND SUBDURAL HEMATOMA S/P CRANIOTOMY, SEIZURE DISORDER, GERD, DM AND HTN. INITIAL DIAGNOSIS OF PNEUMONIA. CURRENT LABS INCLUDE WBC 11.1, H/H 8.0/24.9, NA/K 142/3.5, BUN/CREA 15/0.6. BLOOD, URINE AND SPUTUM C/S PENDING. PULMO CONSULT IN PLACE. ON DEANA AND HÉCTOR. DC PLAN BACK TO [facility] [place] ONCE STABLE. Addendum: 05/13/19 at 1217 by Ginna Loo DC PLAN IS FOR THURSDAY, YULIANA OF [facility] [place] MADE AWARE. SHE STATED MAC WILL BE WORKING ON THURSDAY.WILL FOLLOW UP.
--- NOTE | 2019-05-13 12:46 | NUR ---
MEDICATIONS ADMINISTERED PER ORDER. PT TOLERATED WELL. NO DISTRESS NOTED, FLACC 0. WILL CONTINUE TO MONITOR.
[2019-05-13] MEDS: THERAHONEY GEL 42.5 GM TP SCH (13:00)
[2019-05-13] MEDS: GAUZE TP SCH (13:00)
--- NOTE | 2019-05-13 15:35 | NUR ---
PT DRESSING CHANGE DONE AT THIS TIME. PT TOLERATED WELL, NO DISTRESS NOTED. SAFETY MEASURES IN PLACE. WILL CONTINUE TO MONITOR.
--- NOTE | 2019-05-13 16:40 | NUR ---
BLOOD GLUCOSE CHECKED AT THIS TIME. BLOOD SUGAR IS 140, NO COVERAGE NEEDED. PT RESPIRATIONS EVEN AND UNLABORED ON TRACH TO VENT. NO DISTRESS NOTED. FLACC 0. WILL CONTINUE TO MONITOR.
--- NOTE | 2019-05-13 16:58 | NUR ---
CONTINUED TO MONITOR PT ON VENT WITH SETTINGS CHARTED BREATH SOUNDS PRESENT BILAT COARSE SXN PT WITH MIN AMT OFF WHITE SECS TRACH SITE SECURE AMBU BAG AT BEDSIDE VENT PLUGGED INTO RED OUTLET
[2019-05-13] MEDS: NACL 0.9% 1,000 ML IV SCH (18:00)
--- NOTE | 2019-05-13 18:24 | NUR ---
PT IN BED, WITH EYES CLOSED. RESPIRATIONS EVEN AND UNLABORED ON TRACH TO VENT O2 SAT 100%. NO DISTRESS NOTED, FLACC 0. SAFETY MEASURES IN PLACE. CALL LIGHT IN PLACE. WILL CONTINUE TO MONITOR.
--- NOTE | 2019-05-13 18:57 | NUR ---
WILL ENDORSE PT TO NIGHT NURSE FOR CONTINUITY OF CARE.
--- NOTE | 2019-05-13 19:30 | NUR ---
RECEIVED BEDSIDE REPORT FROM DAY SHIFT NURSE. TOOK OVER CARE OF PT. PT OPENS EYES SPONTANEOUSLY. PEERL. PT HAS DEPRESSED RIGHT CRANIUM. LEFT EAR ABRASION NOTED AND IS DRESSED. PT IS TRACH TO VENT. SIM VC FIO2 28% VT 450 PEEP 5. LUNG SOUNDS ARE CLEAR. EQUAL RISE AND FALL OF THE CHEST. S1 S2 ARE HEARD. G-TUBE NOTED. CONTINUOUS FEEDING GLUCERNA 1.2 70 ML W/ FWF 165 ML Q6HR. GASTRIC RESIDUAL AT 20 ML. BOWELS SOUNDS ARE PRESENT. RADIAL PULSES ARE PRESENT AND REGULAR. CAP REFILL <3 SECS. GIVENS CATHETER NOTED W/ YELLOW URINE NO SEDIMENTS. SCD IN PLACE. BED IS LOCKED IN LOWEST POSITION. LIFESAVING DEVICES ARE IN RED OUTLETS. CALL LIGHT IS IN REACH.
--- NOTE | 2019-05-13 19:33 | NUR ---
RECEIVED ON A [employer] Technology[employer]APE R860 VENTILATOR PLUGGED INTO RED OUTLET TOLERATING WELL WITHOUT ADVERSE REACTIONS NOTED TO A PORTEX DCT#8 AIRWAY CUFF PRESSURE CHECKED NOTED AMBU BAG AT HOB LOC NOT ALERT GOOD CHEST RISE DEEP TRACHEAL SUCTION FOR LARGE THICK PALE YELLOW SECRETIONS OROPHARYNX SUCTION BY RN FOR COPIOUS THICK YELLOW SECRETIONS AIRWAY PATENT
--- NOTE | 2019-05-13 20:48 | NUR ---
DUE MEDICATION ADMINISTERED, PT TOLERATED WELL, NO DISTRESS NOTED, CALL LIGHT WITHIN REACH, WILL CONTINUE TO MONITOR.
--- NOTE | 2019-05-13 21:37 | NUR ---
STABLE NO RESPIRATORY DISTRESS NOTED GOOD CHEST RISE
--- NOTE | 2019-05-13 23:28 | NUR ---
GOOD CHEST RISE DEEP TRACHEAL SUCTION FOR SMALL THIN PALE YELLOW SECRETIONS AIRWAY PATENT
--- NOTE | 2019-05-13 23:30 | NUR ---
PT HR 125, BLOOD SUGAR CHECKED 168, TEMPERATURE CHECKED 98.7, BP 119/71, PT DIAPHORETIC, NOTIFIED DR. ELIUD DR STATED TO CONTINUE TO MONITOR PT, PT STABLE, NO DISTRESS NOTED, CALL LIGHT WITHIN REACH, WILL CONTINUE TO MONITOR.
[2019-05-14] VITALS (12 sets, daily range): BP systolic 116–137; BP diastolic 71–78
[2019-05-14] MEDS: GAUZE TP SCH ×2 (01:20→13:16)
--- NOTE | 2019-05-14 02:04 | NUR ---
TOLERATING VENTILATORY SUPPORT WELL GOOD CHEST RIDE
--- NOTE | 2019-05-14 02:30 | NUR ---
PT IS DIAPHORETIC. TEMP 100.1. WILL INITIATE COOLING MEASURES.
--- NOTE | 2019-05-14 03:00 | NUR ---
CHANGED LINENS, CLEANED PT, PROVIDED GIVENS CATHETER CARE, APPLIED HEEL PADS. CLEANED LEFT EAR WOUND
--- NOTE | 2019-05-14 03:16 | NUR ---
REASSESSED COOLING MEASURE INTERVENTIONS. TEMP IS 98.6
[2019-05-14] MEDS: VANCOMYCIN 1,000 MG in NACL 0.9% 250 ML IV SCH (03:26)
--- NOTE | 2019-05-14 03:45 | NUR ---
RESTING COMFORTABLY NO DISTRESS NOTED EQUAL CHEST RISE DEEP TRACHEAL SUCTION FOR LARGE THICK PALE YELLOW SECRETIONS OROPHARYNX SUCTION FOR MODERATE THICK PALE YELLOW SECRETIONS AIRWAY PATENT
[2019-05-14] MEDS: BLOOD GLUCOSE MONITORING 1 DEV DEV FS SCH ×4 (05:09→20:46)
--- NOTE | 2019-05-14 05:13 | NUR ---
NO PULMONARY DISTRESS NOTED GOOD CHEST RISE AND AERATION THROUGHOUT BILATERAL LUNG BARNES AIRWAY PATENT
[2019-05-14] MEDS: PIPERACILLIN/TAZOBACTAM 3.375 GM in DEXTROSE 5% 50 ML IV SCH ×3 (05:21→20:39)
[2019-05-14 05:53] LABS: ANION GAP 9.2 (8-16); CARBON DIOXIDE 28.8 mmol/L (21-32); CREATININE 0.5 mg/dL (0.6-1.3)
[2019-05-14 06:43] LABS: BASOPHILS # (AUTO) 0.1 K/uL (0.00-0.22); BASOPHILS % (AUTO) 0.5 % (0.0-2.0); EOSINOPHILS # (AUTO) 0.1 K/uL (0-0.4); EOSINOPHILS % (AUTO) 0.8 % (0.0-4.0); HEMATOCRIT 24.6 % (36-52); HEMOGLOBIN 7.7 g/dL (12.0-18.0); LYMPHOCYTES # (AUTO) 1.6 K/uL (2.0-11.5); LYMPHOCYTES % (AUTO) 10.9 % (20.5-51.1); MEAN CORPUSCULAR HEMOGLOBIN 26 pg (27-31); MEAN CORPUSCULAR HGB CONC 32 g/dL (33-37); MEAN CORPUSCULAR VOLUME 82.6 fL (80-94); MONOCYTES # (AUTO) 0.5 K/uL (0.8-1.0); MONOCYTES % (AUTO) 3.6 % (1.7-9.3); NEUTROPHILS # (AUTO) 12.6 K/uL (1.8-7.7); NEUTROPHILS % (AUTO) 84.2 % (42.2-75.2); PLATELET COUNT (AUTO) 458 K/uL (140-450); RED BLOOD CELL COUNT(AUTO) 2.98 MIL/uL (4.20-6.10); RED CELL DISTRIBUTION WIDTH 16.7 % (11.6-13.7)
[2019-05-14] MEDS: ACETYLCYSTEINE 10% (100 MG/ML) 100 MG/ML VIAL INH SCH ×3 (07:00→19:09)
[2019-05-14] MEDS: ALBUTEROL SULFATE/IPRATROPIU 3 ML SOL IH SCH ×3 (07:00→19:09)
--- NOTE | 2019-05-14 07:22 | NUR ---
ENDORSED PT TO DAY SHIFT NURSE SLADE RN, PT STABLE, NO DISTRESS NOTED, CALL LIGHT WITHIN REACH.
--- NOTE | 2019-05-14 07:24 | NUR ---
RECEIVED BEDSIDE REPORT FROM CUP[facility] CHARGER NURSE ROSETTE FOR CONTINUITY OF CARE. PT IS RESTING ON BED. RT BY BEDSIDE AT THIS TIME. PT IS VENTILATED. RESPIRATION EVEN AND UNLABORED ON TRACH TO VENT, SETTING SIMVVC, FIO2 28%, VT 450 ML, RATE 8/MIN, 40 L/MIN, PEEP 5, PS 10 CM H2O. FLACC 0. NO SIGNS OF DISTRESS NOTED. KAYLEY PICC LINE DOUBLE LUMEN IN PLACE, CLEAN AND INTACT, INFUSING PER MD ORDER. SACRAL WOUND, L EAR PRESSURE ULCER, BILATERAL HEELS CALLUSES NOTED, SACRAL WOUND COVERED WITH DRESSING, CLEAN AND DRY, L EAR RAIL CREW MEMBER, AND HEEL PROTECTORS ON BILATERALLY. G-TUBE IN PLACE AND INFUSING GLUCERNA 1.2 AT 70 ML/HR. PT IS INCONTINENT AND BEDREST. GIVENS IN PLACE AND DRAINING YELLOW URINE WITH GRAVITY. DISCUSSES PLAN OF CARE WITH PT AND PT REINFORCEMENT NEEDED. TELE MONITOR ATTACHED. SAFETY MEASURES IN PLACE. BED IN LOW POSITION AND CALL LIGHT WITHIN REACH. BED ALARM ACTIVATED.
--- NOTE | 2019-05-14 09:14 | NUR ---
05/14/19 RD FOLLOW UP COMPLETED PLEASE REFER TO NUTRITION PROGRESS NOTE UNDER CARE ACTIVITY FOR ESTIMATED NUTRITION NEEDS. RD RECOMMENDATIONS: 1. CONTINUE GLUCERNA 1.2 @ 70ML/HR TOLERATED -THIS WILL PROVIDE 1680 ML OF VOLUME, 2016 KCALS, AND 101 GMS OF PROTEIN. THIS IS MEETING 96% OF PTS CALORIC NEEDS AND 96% OF PTS PROTEIN NEEDS. 2. CONTINUE FREE WATER FLUSH: 165 ML Q6H TOLERATED 3. CONTINUE RECOMMEND CONCHITA BID TOLERATED. THIS WILL PROVIDE [address] TO FOLLOW-UP 2-3 DAYS, HIGH RISK HANSA FUNES, MS, RDN
[2019-05-14] MEDS: levETIRAcetam 100 MG/ML ORASYR GT SCH ×2 (09:58→20:39)
[2019-05-14] MEDS: LACTOBACILLUS RHAMNOSUS GG 1 EACH CAP GT SCH (09:59)
[2019-05-14] MEDS: FAMOTIDINE 20 MG TAB GT SCH (09:59)
[2019-05-14] MEDS: INSULIN NPH HUMAN ISOPHANE 100 UNIT/ML VIAL SUBQ SCH ×2 (10:01→20:46)
--- NOTE | 2019-05-14 10:01 | NUR ---
CHECKED BLOOD GLUCOSE AND RECEIVED 157. CHECKED G-TUBE RESIDUAL AND RECEIVED < 5 ML. ADMINISTERED SCHEDULED MEDS PER MD ORDER, MEDS EDUCATION PROVIDED AND REINFORCEMENT NEEDED DUE TO PT'S MENTAL STATUS, PT TOLERATED MEDS WELL WITH G-TUBE. RESPIRATION EVEN AND UNLABORED ON TRACH TO VENT, SPO2 AT 100%. FLACC 0. NO SIGNS OF DISTRESS NOTED. WIPED PT WITH CHG TOWELS ON UPPER EXTREMITIES, CHEST, AND LOWER EXTREMITIES, PT TOLERATED WELL. TELE MONITOR ATTACHED. SAFETY MEASURES IN PLACE. SCD AND HEEL PROTECTORS ON BILATERALLY. BED IN LOW POSITION AND CALL LIGHT WITHIN REACH. BED ALARM ACTIVATED.
--- NOTE | 2019-05-14 10:45 | NUR ---
PROVIDED AM ORAL HYGIENE, PT TOLERATED WELL. NO SIGNS OF DISTRESS NOTED. TELE MONITOR ATTACHED. SAFETY MEASURES IN PLACE. HOB ELEVATED TO 30 DEGREE, BED ALARM ACTIVATED.
--- NOTE | 2019-05-14 11:11 | NUR ---
COLLECTED URINE CULTURE FROM GIVENS PORT. PT IS RESTING ON BED WITH EYES OPEN. FLACC 0. RESPIRATION EVEN AND UNLABORED ON TRACH TO VENT, SPO2 AT 100% AT THIS TIME. NO SIGNS OF DISTRESS NOTED. TELE MONITOR ATTACHED. SAFETY MEASURES IN PLACE. SEIZURE PRECAUTION IN PLACE AND BED ALARM ACTIVATED.
[2019-05-14] MEDS: INSULIN LISPRO SLIDING SCALE 100 UNITS/ML VIAL SUBQ PRN (12:07)
--- NOTE | 2019-05-14 12:07 | NUR ---
ADMINISTERED 2 UNITS OF HUMALOG FOR BLOOD GLUCOSE 157, MED ED PROVIDED AND REINFORCEMENT NEEDED. PT AWAKE AND RESTING ON BED WITH BOTH EYES OPEN. FLACC 0. NO SIGNS OF DISTRESS NOTED. TELE MONITOR ATTACHED. SAFETY MEASURES IN PLACE. BED IN LOW POSITION AND CALL LIGHT WITHIN REACH. BED ALARM ACTIVATED.
[2019-05-14] MEDS: THERAHONEY GEL 42.5 GM TP SCH (13:17)
--- NOTE | 2019-05-14 13:17 | NUR ---
ADMINISTERED ZOSYN PER MD ORDER, MED ED PROVIDED TO PT AND REINFORCEMENT NEEDED. WITH ASSIST FROM FOUNDATION ENGINEER, PERFORMED WOUND CARE, CHANGED DRESSING ON SACRAL WITH THERAHONEY, PAINTED L EAR AND L HEEL WITH BETADINE SOLUTION, PT TOLERATED WELL. OFFLOADED PRESSURE AREA WITH PILLOW. APPLIED SCD AND HEEL PROTECTORS BILATERALLY. NO SIGNS OF DISTRESS NOTED. TELE MONITOR ATTACHED. SAFETY MEASURES IN PLACE.
--- NOTE | 2019-05-14 14:09 | NUR ---
VISITORS ARE BY BEDSIDE. NO SIGNS OF DISTRESS NOTE. TELE MONITOR ATTACHED. SAFETY MEASURES IN PLACE. BED ALARM ACTIVATED AND WOUND BED ON.
--- NOTE | 2019-05-14 15:05 | NUR ---
CALLED [facility] AND SPOKE WITH MAMADOU TO VERIFY PT'S VACCINATION STATUS. PER MAMADOU, PT GOT ACCEPTED INTO HER FACITLY ON THE AND THEY DIDN'T ADMINISTER ANY VACCINES. SHE WILL LOOK THROUGH PT'S CHART AND CALL BACK. PROVIDED A CALL BACK NUMBER.
--- NOTE | 2019-05-14 15:09 | NUR ---
PT IS RESTING ON BED. EVEN AND UNLABORED CHEST RISES NOTED. FLACC 0. NO SIGNS OF DISTRESS NOTED. TELE MONITOR ATTACHED. SAFETY MEASURES IN PLACE.
--- NOTE | 2019-05-14 15:11 | NUR ---
RECEIVED VANCOMYCIN TROUGH FROM LAB 20.5. NOTIFIED PHARMACIST AND SHE WILL ADJUST THE DOSE.
--- NOTE | 2019-05-14 16:20 | NUR ---
CHECKED BLOOD GLUCOSE AND RECEIVED 99, NO INSULIN COVERAGE NEEDED.
--- NOTE | 2019-05-14 16:38 | NUR ---
CHANGED ALL TUBING. HUNG A NEW BOTTLE OF GLUCERNA 1.2 AND RUNNING PER MD ORDER, 70 ML/HR AND WATER FLUSH 165 ML/ Q6H, CHECKED G-TUBE RESIDUAL AND RECEIVED < 5 ML.
--- NOTE | 2019-05-14 17:32 | NUR ---
ASSISTED SCOOP DRIVER TO REPOSITION PT TO HIS R LATERAL SIDE, OFF LOADED PRESSURE WITH PILLOWS. SCD AND HEEL PROTECTORS IN PLACE BILATERALLY. PT TOLERATED WELL. NO SIGNS OF DISTRESS NOTED. TELE MONITOR ATTACHED. SAFETY MEASURES IN PLACE. SEIZURE PRECAUTION AND BED ALARM IN PLACE.
--- NOTE | 2019-05-14 17:59 | NUR ---
RECEIVED A CALL BACK FROM IMELDA AT [facility] [place]. PER IMELDA, PT ARRIVED ON THE FACILITY ON 05/06 AND FAMILY GAVE CONSENT TO ADMINISTER PNA AND FLU VACCINATION, BUT DUE TO PT GOT ADMIT TO THE HOSPITAL, THEY HAVEN'T ADMINISTER ANY VACCINE TO PT.
[2019-05-14] MEDS: NACL 0.9% 1,000 ML IV SCH (18:25)
--- NOTE | 2019-05-14 19:10 | NUR ---
RECEIVED PT FROM DAY SHIFT ON SIMV 8.450,PS 10,+5,24%. VENT PLUGGED INTO RED OUTLET. ALARMS AUDIBLE AND WORKING.BMV AT HEAD OF BED. TRACH PORTEX 8 IS SECURED AND INTACT. TX GIVEN. PT APPEARS IN NO DISTRESS. WILL CONT TO MONITOR
--- NOTE | 2019-05-14 19:14 | NUR ---
ENDORSED PT AT BEDSIDE TO CANDY BUTCHER NURSE KISSES FOR CONTINUITY OF CARE. PT IS RESTING ON BED. RESPIRATION EVEN AND UNLABORED ON TRACH TO VENT, FLACC 0. NO SIGNS OF DISTRESS NOTED. PT IS IN STABLE CONDITION. TELE MONITOR ATTACHED. SAFETY MEASURES IN PLACE. BED ALARM ACTIVATED.
--- NOTE | 2019-05-14 19:32 | NUR ---
RECEIVED BEDSIDE REPORT FROM DAY SHIFT NURSE. PATIENT IS ASLEEP, AROUSABLE BY TOUCH. RESPIRATION EVEN UNLABORED ON TRACH TO VENT. NO DISTRESS NOTED. SKIN IS WARM AND DRY. RIGHT UPPER ARM PICC LINE NOTED. PATENT AND INTACT. GIVENS CATHETER DRAINING YELLOW URINE NOTED. G-TUBE FEEDING NOTED. PLAN OF CARE WAS UP TO DATE. ALL SAFETY MEASURES IN PLACE. BED IS AT LOW POSITION. CALL LIGHT WITHIN REACH. WILL CONTINUE TO MONITOR.
--- NOTE | 2019-05-14 20:10 | NUR ---
INITIAL ASSESSMENT DONE. VITALS WERE TAKEN. CHECKED G-TUBE RESIDUAL. OBTAINED 10CC. WILL CONTINUE TO MONITOR.
--- NOTE | 2019-05-14 20:40 | NUR ---
ALL SCHEDULED MEDS WERE GIVEN. HUMILIN N SCHEDULED GIVEN PER ODER. WILL CONTINUE TO MONITOR.
--- NOTE | 2019-05-14 22:27 | NUR ---
ROUTINE VENT CHECK. PT REMAINS STABLE AND IS IN NO DISTRESS. WILL CONT TO MONITOR
--- NOTE | 2019-05-14 22:54 | NUR ---
SUCTIONED PATIENT. SMALL AMOUNT WHITE SECRETION OBTAINED. WILL CONTINUE TO MONITOR.
--- NOTE | 2019-05-14 23:10 | NUR ---
PATIENT RESPIRATION EVEN UNLABORED ON TRACH TO VENT. RESPIRATION 30 BPM. NOT IN DISTRESS. CHECKED PATIENT VITALS. BP 120/75 HR 120 TEMP 98.8 AXILLARY. SPO2 100%. NOTIFIED MD. RECEIVED ORDER TO GIVE PATIENT BREATHING TREATMENT. CALLED RT FOR THE BREATHING TX. WILL CONTINUE TO MONITOR.
--- NOTE | 2019-05-14 23:15 | NUR ---
CALLED BY ASHANTI ZHANG TO ASSESS PATIENT BEING TACHYPNEIC AND DR. VILLAFANA RECCOMENDED BREATHING TX. ASSESSED THE PT AND PATIENT WAS IN NO DISTRESS. RR 27. SATURATION WAS 100%. B/S WERE COURSE BILATERALLY BUT HEARD SOME GOOD AERATION. PT TENDS TO BECOME TACHYPNEIC WHEN SUCTIONED. WILL CONT TO MONITOR
[2019-05-15] VITALS: BP 115/73
--- NOTE | 2019-05-15 | NUR ---
CHECKED PATIENT VITALS BP 115/73 HR 116 TEMP 98.7 RR 24 PATIENT IS IN STABLE CONDITION. NO DISTRESS NOTED. WILL CONTINUE TO MONITOR.
[2019-05-15 01:18] VITALS: BP 126/70
[2019-05-15] MEDS: GAUZE TP SCH ×2 (01:19→12:22)
--- NOTE | 2019-05-15 01:38 | NUR ---
PATIENT IS AWAKE, TACHYPNEA BREATHING 32BPM HR 120 BP 130/75 SPO2 100% TEMP 98.5 AXILLARY. PER MD ITS OKAY TO GIVE PAIN MEDS.
--- NOTE | 2019-05-15 02:37 | NUR ---
RECHECKED PATIENT. PATIENT IS SLEEPING RESPIRATION EVEN UNLABORED ON TRACH TO VENT. VITALS WERE TAKEN. BP 118/75 HR 116 RR 24 TEMP 98.5 AXILLARY SPO2 100%.
[2019-05-15 04:00] VITALS: BP 126/73
--- NOTE | 2019-05-15 04:10 | NUR ---
VITALS WERE TAKEN. PATIENT IS IN STABLE CONDITION. G-TUBE FEEDING CHANGED. RUNNING AT 70CC/HR. TOLERATING IT WELL. CHECKED RESIDUAL. OBTAINED 10CC. WILL CONTINUE TO MONITOR.
--- NOTE | 2019-05-15 04:21 | NUR ---
PROVIDE PATIENT GOOD PERICARE AND GIVENS CATHETER CARE.
[2019-05-15] MEDS: PIPERACILLIN/TAZOBACTAM 3.375 GM in DEXTROSE 5% 50 ML IV SCH ×2 (04:44→12:07)
--- NOTE | 2019-05-15 05:05 | NUR ---
pt remains on documented setting. vent plugged into red outlet. bmv at head of bed. alarms audible and working. trach is secured and intact. trach care completed. pt appears in no distress. will cont to monitor
[2019-05-15] MEDS ORDERED: VANCOMYCIN 1,000 MG in NACL 0.9% 250 ML IV SCH (06:00)
[2019-05-15 06:03] LABS: BASOPHILS # (AUTO) 0.1 K/uL (0.00-0.22); BASOPHILS % (AUTO) 0.5 % (0.0-2.0); EOSINOPHILS # (AUTO) 0.2 K/uL (0-0.4); EOSINOPHILS % (AUTO) 1.2 % (0.0-4.0); HEMATOCRIT 25.4 % (36-52); HEMOGLOBIN 8.4 g/dL (12.0-18.0); LYMPHOCYTES # (AUTO) 1.5 K/uL (2.0-11.5); LYMPHOCYTES % (AUTO) 11.4 % (20.5-51.1); MEAN CORPUSCULAR HEMOGLOBIN 27 pg (27-31); MEAN CORPUSCULAR HGB CONC 33 g/dL (33-37); MEAN CORPUSCULAR VOLUME 81.7 fL (80-94); MONOCYTES # (AUTO) 0.4 K/uL (0.8-1.0); MONOCYTES % (AUTO) 3.4 % (1.7-9.3); NEUTROPHILS # (AUTO) 10.9 K/uL (1.8-7.7); NEUTROPHILS % (AUTO) 83.5 % (42.2-75.2); PLATELET COUNT (AUTO) 453 K/uL (140-450); RED BLOOD CELL COUNT(AUTO) 3.11 MIL/uL (4.20-6.10); RED CELL DISTRIBUTION WIDTH 17.6 % (11.6-13.7); WHITE BLOOD COUNT (AUTO) 13.1 K/uL (4.8-10.8)
--- NOTE | 2019-05-15 06:11 | NUR ---
SPOKE TO MAMADOU FROM [facility] REGARDING ABOUT IV VANCOMYCIN MEDICATION THAT IS DUE AT 6AM. PATIENT VANCO TROUGH WAS DRAWN YESTERDAY AND RESULT IS 20.5. PER MAMADOU ITS OKAY TO GIVE JUST FOLLOW UP WITH THE PHARMACY FOR THE NEXT VANCO TROUGH. NOTIFIED WITH . SAID ITS OKAY TO GIVE.
[2019-05-15 06:31] LABS: ANION GAP 8.2 (8-16); CARBON DIOXIDE 29.8 mmol/L (21-32); CREATININE 0.6 mg/dL (0.6-1.3); MAGNESIUM 2.1 mg/dL (1.8-2.4); PHOSPHORUS 3.4 mg/dL (2.5-4.9)
[2019-05-15] MEDS: BLOOD GLUCOSE MONITORING 1 DEV DEV FS SCH ×2 (06:53→12:22)
[2019-05-15] MEDS: ALBUTEROL SULFATE/IPRATROPIU 3 ML SOL IH SCH ×2 (07:14→13:17)
[2019-05-15] MEDS: ACETYLCYSTEINE 10% (100 MG/ML) 100 MG/ML VIAL INH SCH ×2 (07:14→13:17)
--- NOTE | 2019-05-15 07:14 | NUR ---
RECEIVED ON A [employer]APE R860 VENTILATOR PLUGGED INTO RED OUTLET TOLERATING WELL WITHOUT INCIDENT TO A PORTEX DCT #8 AIRWAY SECURED WITH A EUSEBIO TRAC TIE CUFF PRESSURE CHECKED NOTED LOC QUIET RESPONSIVE TO STIMULUS IE:SUCTIONING AMBU BAG NOTED AT HON EQUAL CHEST RISE DEEP TRACHEAL SUCTIONING FOR MODERATE THICK PALE YELLOW SECRETIONS AIRWAY PATENT
--- NOTE | 2019-05-15 07:26 | NUR ---
ENDORSED PATIENT TO DAY SHIFT NURSE. PATIENT IS IN STABLE CONDITION
--- NOTE | 2019-05-15 07:27 | NUR ---
RECEIVED BEDSIDE REPORT FROM DEICER INSPECTOR ELECTRIC NURSE FOR CONTINUITY OF CARE. PATIENT IS ASLEEP, AROUSABLE BY TOUCH. RESPIRATION EVEN UNLABORED ON TRACH TO VENT. NO DISTRESS NOTED. SKIN IS WARM AND DRY. RIGHT UPPER ARM PICC LINE NOTED INFUSING IVF WELL, PATENT AND INTACT, DRESSING CLEAN AND DRY. GIVENS CATHETER DRAINING YELLOW URINE NOTED. G-TUBE FEEDING NOTED. UPDATED BOARD. UPDATED PATIENT WITH PLAN OF CARE. PATIENT UNABLE TO VERBALIZE UNDERSTANDING. PATIENT ON WOUND BED WITH HEEL PROTECTORS. SAFETY, ASPIRATION, AND SEIZURE PRECAUTIONS IN PLACE. BED IS AT LOW POSITION WITH ALARM AND BRAKES ON. CALL LIGHT WITHIN REACH. WILL CONTINUE TO MONITOR.
[2019-05-15 08:00] VITALS: BP 116/73
[2019-05-15] MEDS ORDERED: CRUSHER, PILL MC ONE (08:59)
[2019-05-15] MEDS: FAMOTIDINE 20 MG TAB GT SCH (09:00)
[2019-05-15] MEDS: LACTOBACILLUS RHAMNOSUS GG 1 EACH CAP GT SCH (09:00)
[2019-05-15] MEDS: levETIRAcetam 100 MG/ML ORASYR GT SCH (09:00)
[2019-05-15] MEDS ORDERED: FLUC100T PO (09:01)
[2019-05-15] MEDS ORDERED: PIPE1SOL IV (09:01)
[2019-05-15] MEDS ORDERED: VANC1PLA7 IV (09:01)
[2019-05-15] MEDS: INSULIN NPH HUMAN ISOPHANE 100 UNIT/ML VIAL SUBQ SCH (09:05)
--- NOTE | 2019-05-15 09:05 | NUR ---
GTUBE AUSCULTATED FOR PLACEMENT, 35 ML OF RESIDUAL NOTED. ORDERED MEDICATIONS GIVEN. PATIENT TOLERATED IT. NO S/S OF DISTRESS OR SOB NOTED. WILL CONTINUE TO MONITOR PATIENT.
--- NOTE | 2019-05-15 09:05 | NUR ---
SPOKE TO NEWTON FROM [facility] AND GAVE ME RM 3 BED C.
--- NOTE | 2019-05-15 09:53 | NUR ---
PATIENT PRESENTING WITH TACHYPNEA AT 30 BPM BREATH SOUNDS CLEAR BILATERAL WITH GOOD CHEST RISE REVIEWED VENTILATOR FLOW SHEET, HEMATOLOGY, CXR AND RECORDED TEMPERATURE INCREASED MECHANICAL RATE TO 10 BPM FOR SUPPORT TO DECREASE TACHYPNEIC STATUS WELT ROUGHER TO MONITOR AND ENDORSE TO DAY/RN
--- NOTE | 2019-05-15 10:05 | NUR ---
PATIENT SUCTIONED ORALLY, SMALL WHITE SECRETIONS NOTED. PATIENT TOLERATED IT. PATIENT RESTING COMFORTABLY IN BED AT THIS TIME. FLACC-0, WILL CONTINUE TO MONITOR PATIENT.
--- NOTE | 2019-05-15 10:58 | NUR ---
CALLED PATIENT'S FAMILY MEMBER KAITLIN DAWN AT [phone] TO INFORM OF TRANSFER ORDERS AND ASKING VERIFICATION FOR FLU AND PNA VACCINE. NO ANSWER, LEFT VOICEMAIL AND HOSPITAL PHONE NUMBER. WILL WAIT FOR HER TO CALL BACK.
--- NOTE | 2019-05-15 11:30 | NUR ---
PATIENT WOUNDS DRESSED, WOUND PICTURE TAKEN. PATIENT CHANGED INTO TRANSFER GOWN. PATIENT HAD BM, PATIENT CLEANED AND CHANGED AND REPOSITIONED FOR COMFORT AND TO OFFLOAD PRESSURED AREAS.
[2019-05-15 12:00] VITALS: BP 120/75
--- NOTE | 2019-05-15 12:07 | NUR ---
BLOOD SUGAR 121, NO COVERAGE NEEDED. ORDERED ANTIBIOTICS GIVEN. PATIENT TOLERATING IT WELL. PATIENT SUCTIONED ORALLY, SMALL WHITE SECRETIONS NOTED. PATIENT TOLERATED IT. SAFETY, ASPIRATION, SEIZURE PRECAUTIONS IN PLACE, CALL LIGHT WITHIN REACH, WILL CONTINUE TO MONITOR PATIENT.
[2019-05-15] MEDS: THERAHONEY GEL 42.5 GM TP SCH (12:22)
--- NOTE | 2019-05-15 12:50 | NUR ---
FOLLOW UP WITH PATIENT'S FAMILY MEMBERS. PHONE NUMBER FOR GABRIELA QUINTEROS NOT IN SERVICE, LEFT ANOTHER MESSAGE TO KAITLIN DAWN.
--- NOTE | 2019-05-15 13:00 | NUR ---
CALLED [facility], REPORT GIVEN TO NEWTON. SHE VERBALIZED UNDERSTANDING ABOUT PATIENT'S CONTINUITY OF ANTIBIOTICS AND DIFLUCAN AND FOLLOW UP WITH PCP AND LAB DRAWS. PATIENT WILL BE GOING TO ROOM 3 BED C, SCHEDULED FOR OIL WELL DIRECTIONAL SURVEYOR FROM [facility] AT 1330.
--- NOTE | 2019-05-15 13:17 | NUR ---
RESTING COMFORTABLE NO PULMONARY DISTRESS NOTED GOOD EQUAL CHEST RISE GOOD AERATION THROUGHOUT BILATERAL LUNG BARNES AIRWAY PATENT
--- NOTE | 2019-05-15 13:21 | NUR ---
[facility] IN ROOM REVIEWED VENTILATOR SETTINGS TRACHEOSTOMY TYPE/SIZE WITH KAREL
--- NOTE | 2019-05-15 13:30 | NUR ---
[facility] PRESENT, GAVE REPORT TO ASHANTI VINSON. PATIENT BEING TRANSPORTED [place] [facility] [place] ROOM 3 BED CReta ABBOTT IN [place] TO ASSIST. Addendum: 05/15/19 at 1454 by Ovi Dixon RN ID BANDS CUT, TELE MONITOR REMOVED, GTUBE CLAMPED, PICC LINE CLAMPED. PATIENT UNABLE TO SIGN PAPERWORK. DISCHARGE PAPERWORK SENT WITH PATIENT TO [facility].
--- NOTE | 2019-05-15 13:40 | NUR ---
PATIENT WHEELED OFF FLOOR TO BE TRANSFERRED TO [facility].
--- NOTE | 2019-05-15 14:35 | NUR ---
PATIENT'S FAMILY MEMBERS ARRIVED ON FLOOR. INFORMED THEM OF PATIENT'S TRANSFER AND MISSED CALLS MADE TO KAITLIN DAWN. THEY VERBALIZED UNDERSTANDING. HEADING OVER TO [facility] TO VISIT PATIENT.
== END 2019-05-15 13:40 | DRG 720 ==
LOC: MED 06:54 → MTU 09:27
PROVIDERS: ADMIT General Practice; ATTEND General Practice
PROC: 5A1945Z Respiratory Ventilation, 24-96 Consecutive Hours (ICD-10-PCS; principal; 2019-05-11)
DX: A41.9 Sepsis, unspecified organism (principal); J69.0 Pneumonitis due to inhalation of food and vomit; L89.323 Pressure ulcer of left buttock, stage 3; J96.11 Chronic respiratory failure with hypoxia; R13.10 Dysphagia, unspecified; D64.9 Anemia, unspecified; E11.9 Type 2 diabetes mellitus without complications; G40.909 Epilepsy, unspecified, not intractable, without status epilepticus; K21.9 Gastro-esophageal reflux disease without esophagitis; I10 Essential (primary) hypertension
CPT/HCPCS: 36415; 36600; 71045; 80048; 80053; 80202; 80305; 81001; 82150; 82803; 82948; 83036; 83605; 83690; 83735; 83880; 84100; 84439; 84443; 84484; 85025; 85610; 87040; 87070; 87081; 87086; 87186; 87205; 87804; 89220; 93005; 94002; 94003; 94640; 96365; 96367; 99285; J1815; J1940; J2001; J2270; J2543; J2997; J3370; J3480; J7030; J7042; J7060; Q0092

== ENCOUNTER 2019-06-10 11:55 | Inpatient (IN) | payer MEDICAID ==
[~2019-06-10] VITALS: Ht 165.1 cm; Wt 55.3 kg
[~2019-06-10 11:55] MED LIST: ASCO500T45 GT; COL100L GT; FAMO-90 GT; FLUC100T PO; KEP500L GT; METO25TA GT; MVI WITH MINERALS GT; NOVN SUBQ; PIPE1SOL IV; VANC1PLA7 IV; ZINC220C28 GT
--- NOTE | 2019-06-10 11:55 | NUR ---
Patient BIBA [place] [facility] [place], transferred to bed 10. RN and RT evaluating the patient at bedside.
--- NOTE | 2019-06-10 11:56 | NUR ---
Dr. Cabezas is evaluating the patient at bedside.
[2019-06-10 11:58] VITALS: BP 108/74
--- NOTE | 2019-06-10 11:58 | NUR ---
68 Y/O MALE BROUGHT INTO ER BY EMS FROM [facility]. PT IS TRACH/VENTILATOR DEPENDENT, GCS 7/15. URINARY CATHETER IN PLACE X 1 DAY. ARRIVED WITH RFA IV. LFA 20 GAUGE IV INITIATED UPON ARRIVAL. GTUBE IN PLACE. BILATERAL UPPER & LOWER EXTREMITY WEAKNESS. BED BOUND.
--- NOTE | 2019-06-10 12:00 | NUR ---
HX-CHRONIC RESP FAILURE, DYSPHAGIA, GTUBE, GIVENS, EPILEPSY, DM, HTN, UNSPECIFIED INTRACRANIAL INJURY WITH LOC, SKULL FRACTURE, CRANIOTOMY
[2019-06-10 12:03] VITALS: BP 109/71
[2019-06-10] MEDS ORDERED: NACL 0.9% 500 ML IV SCH (12:07)
--- NOTE | 2019-06-10 12:15 | NUR ---
RT AT BEDSIDE
--- NOTE | 2019-06-10 12:20 | NUR ---
PTS URINE COLLECTED FROM GIVENS CATH
--- NOTE | 2019-06-10 12:20 | NUR ---
XRAY AT BEDSIDE
[2019-06-10] MEDS ORDERED: PIPERACILLIN/TAZOBACTAM 3.375 GM in DEXTROSE 5% 50 ML IV ONE (12:25)
[2019-06-10] MEDS ORDERED: PIPERACILLIN/TAZOBACTAM 3.375 GM VIAL IV ONE (12:32)
[2019-06-10 12:47] LABS: APPEARANCE,URINE CLEAR (CLEAR); BILIRUBIN,URINE NEGATIVE (NEGATIVE); BLOOD, URINE 1+ (NEGATIVE); COLOR,URINE YELLOW (YELLOW); LEUKOCYTE ESTERASE ,URINE 2+ (NEGATIVE); NITRITE, URINE POSITIVE (NEGATIVE); PH,URINE 6.5 (5.0-9.0); UGLUCOSE 1+ (NEGATIVE)
[2019-06-10 12:54] LABS: HEMATOCRIT 30.9 % (36-52); HEMOGLOBIN 9.3 g/dL (12.0-18.0); MEAN CORPUSCULAR HEMOGLOBIN 25 pg (27-31); MEAN CORPUSCULAR HGB CONC 30 g/dL (33-37); MEAN CORPUSCULAR VOLUME 83.3 fL (80-94); PLATELET COUNT (AUTO) 406 K/uL (140-450); RED BLOOD CELL COUNT(AUTO) 3.71 MIL/uL (4.20-6.10); RED CELL DISTRIBUTION WIDTH 17.8 % (11.6-13.7); WHITE BLOOD COUNT (AUTO) 19.5 K/uL (4.8-10.8)
[2019-06-10] MEDS ORDERED: LEVOFLOXACIN 500 MG/D5W PREMIX 100 ML IV ONE (12:55)
[2019-06-10 12:58] LABS: PROTHROMBIN TIME 10.1 secs (10.8-13.4)
[2019-06-10 13:00] LABS: ALBUMIN 2.5 g/dL (3.4-5.0); ANION GAP 9.4 (8-16); CARBON DIOXIDE 34.8 mmol/L (21-32); CREATININE 0.6 mg/dL (0.6-1.3); POTASSIUM 4.2 mmol/L (3.5-5.1); TOTAL BILIRUBIN 0.3 mg/dL (0.0-1.0)
--- NOTE | 2019-06-10 13:00 | NUR ---
500 NACL BOLUS AND ZOSYN STARTED
[2019-06-10 13:01] LABS: WBC,URINE 60-80 /HPF (0-5)
[2019-06-10] MEDS ORDERED: NACL 0.9% 1,000 ML IV ONE (13:05)
[2019-06-10 13:15] LABS: EOSINOPHILS % (MANUAL) 3 % (0-4); LYMPHOCYTES % (MANUAL) 4 % (20-46); MONOCYTES % (MANUAL) 3 % (5-12)
[2019-06-10] MEDS: NACL 0.9% 1,000 ML IV SCH (13:16)
[2019-06-10 13:20] VITALS: BP 116/80
[2019-06-10] MEDS ORDERED: HYDROcodone/APAP 5/325 MG 1 TAB TAB PO PRN (13:20)
[2019-06-10] MEDS ORDERED: ONDANSETRON 4 MG/2 ML VIAL IM/IVP PRN (13:20)
[2019-06-10] MEDS ORDERED: ACETAMINOPHEN 325 MG TAB PO PRN (13:20)
[2019-06-10] MEDS ORDERED: MORPHINE SULFATE 2 MG/ML SYR IVP PRN (13:20)
[2019-06-10] MEDS ORDERED: ZOLPIDEM 5 MG TAB PO PRN (13:20)
[2019-06-10] MEDS ORDERED: LORazepam 2 MG/ML VIAL IM/IVP PRN (13:20)
[2019-06-10] MEDS ORDERED: DOCUSATE SODIUM 100 MG GELCAP PO PRN (13:20)
[2019-06-10] MEDS ORDERED: ALBUTEROL SULFATE/IPRATROPIU 3 ML SOL IH PRN (13:30)
[2019-06-10] MEDS ORDERED: DEXTROSE 50% 50 ML SYR IVP PRN (13:40)
[2019-06-10] MEDS ORDERED: VANCOMYCIN PER PHARMACY MC PRN ×2 (13:40→19:45)
[2019-06-10 13:44] LABS: BARBITURATE, URINE NEGATIVE ng/ml (NEG <=200); BENZODIAZEPINE, URINE NEGATIVE ng/mL (NEG <=200); CANNABINOID, URINE NEGATIVE ng/mL (NEG <=50); COCAINE, URINE NEGATIVE ng/mL (NEG <=300); OPIATE, URINE NEGATIVE ng/mL (NEG <=2000); PHENCYCLIDINE SCREEN,URINE NEGATIVE ng/mL (NEG <=25)
[2019-06-10 13:48] LABS: CHOL/HDL RATIO 3.3 (1-4.5); MAGNESIUM 2.3 mg/dL (1.8-2.4); PHOSPHORUS 4.3 mg/dL (2.5-4.9); THYROID STIMULATING HORMONE 2.42 uIU/mL (0.34-3.74)
--- NOTE | 2019-06-10 13:55 | NUR ---
JORY IVBP STARTED BY DESIRE BURRELL
--- NOTE | 2019-06-10 13:56 | NUR ---
# 16 FR Urinary catheter inserted BY DESIRE BURRELL
[2019-06-10] MEDS ORDERED: NUTR-583 PO (14:08)
[2019-06-10] MEDS ORDERED: INSU100S5 IJ (14:08)
[2019-06-10] MEDS ORDERED: KEP500 PO (14:08)
[2019-06-10] MEDS ORDERED: FAMO10TA93 PO (14:08)
[2019-06-10] MEDS ORDERED: ZINC220C28 PO (14:08)
[2019-06-10] MEDS ORDERED: ARGI4.5P3 PO (14:08)
[2019-06-10 14:30] VITALS: BP 122/72
--- NOTE | 2019-06-10 14:30 | NUR ---
PATIENT ARRIVED FROM ER VIA GURNEY. TRANSFERRED TO [facility] BED AND RT PLACED ON VENTILATOR. PATIENT TOLERATED WELL. AAOX1, APHASIC, NO DISTRESS NOTED. FLACC 0. RESPIRATIONS, EVEN, UNLABORED, ON TRACH TO VENT WITH VENT SETTINGS FIO2:28%, VT:450, RATE:14, FLOW:50, PEEP:5 WITH OW SAT 100%. IV SITES INTACT, PATENT, AND ON SALINE LOCK. GIVENS CATHETER IN PLACE, DRAINING CLOUDY YELLOW URINE. ORIENTED PATIENT TO ROOM AND CALL LIGHT. UNABLE TO COMPREHEND. REVIEWED PLAN OF CARE WITH PATIENT. PATIENT UNABLE TO COMPREHEND. SAFETY MEASURES IN PLACE, CALL LIGHT WITHIN REACH. WILL CONTINUE TO MONITOR.
--- NOTE | 2019-06-10 14:35 | NUR ---
Patient will be admitted to care of HER. Admited to TELE. Will go to room 108B. Belongings list completed. Report to MONSERRAT CORLEY RUNNING UPON ADMIT
[2019-06-10] MEDS: BLOOD GLUCOSE MONITORING 1 DEV DEV FS SCH ×2 (16:30→21:11)
--- NOTE | 2019-06-10 17:48 | NUR ---
PT REMAINS ON DOCUMENTED VENT SETTINGS. PT SUCTIONED OBTAINED SMALL AMOUNT OF PALE YELLOW SECRETIONS, AIRWAY IS PATENT AND TRACH IS SECURE. VENT ALARMS REMAIN ON AND FUNCTIONING. PT NOT IN ANY DISTRESS AT THIS TIME.
[2019-06-10] MEDS: METOPROLOL 50 MG TAB GT SCH (17:50)
[2019-06-10] MEDS: VANCOMYCIN 750 MG in DEXTROSE 5% 250 ML IV SCH (17:50)
[2019-06-10] MEDS: PIPERACILLIN/TAZOBACTAM 3.375 GM in DEXTROSE 5% 50 ML IV SCH (18:19)
--- NOTE | 2019-06-10 18:19 | NUR ---
PERFORMED TRACH SUCTIONING AND GAVE SCHEDULED DUE MEDICATIONS. PATIENT TOLERATED WELL. WILL CONTINUE TO MONITOR.
[2019-06-10] MEDS: ALBUTEROL SULFATE/IPRATROPIU 3 ML SOL IH SCH (19:12)
--- NOTE | 2019-06-10 19:25 | NUR ---
RECEIVED REPORT FROM DAY SHIFT NURSE. PATIENT LYING IN BED. VENTILATOR IN PLACE. IVF PATENT AND INFUSING WELL. GTUBE INTACT WITH ONGOING FEEDING. FC INTACT AND DRAINING WELL. DISCUSSED PLAN OF CARE. WILL CONTINUE TO MONITOR.
[2019-06-10 20:00] VITALS: BP 98/61
--- NOTE | 2019-06-10 20:02 | NUR ---
RECEIVED PT ON CHARTED VENT SETTINGS, NO DISTRESS NOTED AT THIS TIME. AMBU BAG LOCATED BEDSIDE, VENT PLUGGED INTO RED OUTLET, ALL ALARMS ACTIVE AND ON. PT TOLERATED HHN WELL, SLIGHTLY TACHYPNEIC UPON SUCTIONING TRACHEOSTOMY TUBE. WILL CONTINUE TO MONITOR.
[2019-06-10] MEDS: DOCUSATE 100 MG/10 ML UDC GT SCH (21:04)
[2019-06-10] MEDS: levETIRAcetam 100 MG/ML ORASYR GT SCH (21:04)
[2019-06-10] MEDS: ASCORBIC ACID 500 MG TAB GT SCH (21:04)
[2019-06-10] MEDS: INSULIN NPH HUMAN ISOPHANE 100 UNIT/ML VIAL SUBQ SCH (21:11)
--- NOTE | 2019-06-10 21:15 | NUR ---
ROUNDS DONE. CHECKED GTUBE RESIDUAL. 30CC OBTAINED. SCHEDULED MEDS GIVEN VIA GTUBE. PATIENT TOLERATED MEDS. ASPIRATION PRECAUTIONS IN PLACE. BLOOD SUGAR CHECKED. SCHEDULED INSULIN GIVEN.
--- NOTE | 2019-06-10 23:00 | NUR ---
SUCTIONED PATIENT. OBTAINED MODERATE AMOUNT OF SPUTUM. TURNED AND REPOSITIONED. KEPT COMFORTABLE. WILL CONTINUE TO MONITOR.
[2019-06-11] VITALS (7 sets, daily range): BP systolic 105–124; BP diastolic 61–76
--- NOTE | 2019-06-11 | NUR ---
ROUNDS DONE. VITAL SIGNS STABLE. DUE MEDICATIONS GIVEN ORDERED. FLACC 0. WILL CONTINUE TO MONITOR.
[2019-06-11] MEDS: PIPERACILLIN/TAZOBACTAM 3.375 GM in DEXTROSE 5% 50 ML IV SCH ×4 (00:34→18:20)
--- NOTE | 2019-06-11 03:03 | NUR ---
PATIENT COUGHING. SUCTIONED MODERATE AMOUNT OF SPUTUM. O2 SAT 98%. WILL CONTINUE TO MONITOR.
[2019-06-11] MEDS: VANCOMYCIN 750 MG in DEXTROSE 5% 250 ML IV SCH ×2 (03:49→16:31)
--- NOTE | 2019-06-11 04:00 | NUR ---
ROUNDS DONE. VITAL SIGNS TAKEN. VITAL SIGNS STABLE. WILL CONTINUE TO MONITOR
--- NOTE | 2019-06-11 04:16 | NUR ---
ROUNDS DONE. DUE MEDICATION DONE. ORAL CARE, G-TUBE CARE, WOUND CARE, CATHETER CARE, PERINEAL CARE GIVEN. PATIENT TOLERATED WELL. SECRETIONS SUCTIONED. NO SIGNS OF DISTRESS NOTED AT THIS TIME. PATIENT KEPT COMFORTABLE. SAFETY MEASURES IN PLACE. WILL CONTINUE TO MONITOR.
[2019-06-11] MEDS: NACL 0.9% 1,000 ML IV SCH ×2 (06:16→22:49)
[2019-06-11] MEDS: INSULIN LISPRO SLIDING SCALE 100 UNITS/ML VIAL SUBQ PRN ×3 (06:23→21:06)
[2019-06-11] MEDS: BLOOD GLUCOSE MONITORING 1 DEV DEV FS SCH ×4 (06:31→21:07)
[2019-06-11 06:44] LABS: ANION GAP 12.1 (8-16); CARBON DIOXIDE 30.4 mmol/L (21-32); CREATININE 0.7 mg/dL (0.6-1.3); POTASSIUM 3.5 mmol/L (3.5-5.1)
[2019-06-11 06:51] LABS: BASOPHILS % (AUTO) 0.2 % (0.0-2.0); EOSINOPHILS # (AUTO) 0.1 K/uL (0-0.4); EOSINOPHILS % (AUTO) 0.9 % (0.0-4.0); HEMATOCRIT 27.1 % (36-52); HEMOGLOBIN 8.2 g/dL (12.0-18.0); LYMPHOCYTES # (AUTO) 1.2 K/uL (2.0-11.5); MAGNESIUM 1.9 mg/dL (1.8-2.4); MEAN CORPUSCULAR HEMOGLOBIN 25 pg (27-31); MEAN CORPUSCULAR HGB CONC 30 g/dL (33-37); MEAN CORPUSCULAR VOLUME 83.7 fL (80-94); MONOCYTES # (AUTO) 0.6 K/uL (0.8-1.0); MONOCYTES % (AUTO) 4.7 % (1.7-9.3); NEUTROPHILS # (AUTO) 11.4 K/uL (1.8-7.7); NEUTROPHILS % (AUTO) 85.2 % (42.2-75.2); PHOSPHORUS 2.8 mg/dL (2.5-4.9); PLATELET COUNT (AUTO) 333 K/uL (140-450); RED BLOOD CELL COUNT(AUTO) 3.23 MIL/uL (4.20-6.10); RED CELL DISTRIBUTION WIDTH 17.6 % (11.6-13.7); WHITE BLOOD COUNT (AUTO) 13.4 K/uL (4.8-10.8)
--- NOTE | 2019-06-11 07:12 | NUR ---
ENDORSED PATIENT TO DAY SHIFT NURSE. PATIENT TRACH TO VENT IN PLACE. IVF RUNNING AND INFUSING WELL. GIVENS CATHETER INTACT AND DRAINING WELL. NO SIGNS OF DISTRESS NOTED. PLAN OF CARE DISCUSSED.
--- NOTE | 2019-06-11 07:40 | NUR ---
RECEIVED PATIENT FROM NIGHT NURSE, PT IS IN STABLE CONDITION WITH TRACH TO VENT, SLEEPING, IVF INTACT AND INFUSING WELL. ON TUBE FEEDING, SKIN NON INTACT. SAFETY MEASURES IN PLACE AND CALL LIGHT WITHIN REACH. WILL CONTINUE TO MONITOR
[2019-06-11] MEDS: ALBUTEROL SULFATE/IPRATROPIU 3 ML SOL IH SCH ×3 (07:58→20:40)
--- NOTE | 2019-06-11 07:58 | NUR ---
RECEIVED ON A [employer]APE R860 VENTILATOR PLUGGED INTO RED OUTLET TOLERATING WELL WITHOUT INCIDENT TO A PORTEX DCT #8 SECURED WITH A TRACH TIE CUFF PRESSURE CHECK NOTED AMBU BAG NOTED AT BEDSIDE LOC AWAKE NON VERBAL EQUAL CHEST RISE DEEP TRACHEAL SUCTION FOR SMALL SEMI THICK YELLOW SECRETIONS OROPHARYNX SUCTION FOR COPIOUS THICK GREEN TO SEMI CLEAR SECRETIONS AIRWAY PATENT
[2019-06-11] MEDS: LACTOBACILLUS RHAMNOSUS GG 1 EACH CAP PO SCH (09:06)
[2019-06-11] MEDS ORDERED: CRUSHER, PILL MC ONE (09:06)
[2019-06-11] MEDS: ASCORBIC ACID 500 MG TAB GT SCH ×2 (09:07→20:57)
[2019-06-11] MEDS: FAMOTIDINE 20 MG TAB GT SCH (09:07)
[2019-06-11] MEDS: METOPROLOL 50 MG TAB GT SCH ×3 (09:07→17:00)
[2019-06-11] MEDS: ZINC SULF 220 MG CAP GT SCH (09:08)
[2019-06-11] MEDS: DOCUSATE 100 MG/10 ML UDC GT SCH ×2 (09:08→20:57)
[2019-06-11] MEDS: levETIRAcetam 100 MG/ML ORASYR GT SCH ×2 (09:08→20:57)
[2019-06-11] MEDS: INSULIN NPH HUMAN ISOPHANE 100 UNIT/ML VIAL SUBQ SCH ×2 (09:32→21:05)
--- NOTE | 2019-06-11 09:41 | NUR ---
MEDICATIONS DUE GIVEN, PATIENT IS STABLE.MOUTH CARE AND SEIZURE PRECAUTIONS DONE. PILL CRASHER USED FOR HIS MEDICATIONS.SAFETY MEASURES IN PLACE AND CALL LIGHT WITHIN REACH.
--- NOTE | 2019-06-11 10:04 | NUR ---
STABLE AWAKE GOOD CHEST RISE DEEP TRACHEAL SUCTION FOR MODERATE SEMI THICK YELLOW SECRETIONS AIRWAY PATENT
--- NOTE | 2019-06-11 11:06 | NUR ---
NO SOB NOTED EQUAL CHEST RISE DEEP TRACHEAL SUCTION FOR SMALL SEMI THICK PALE YELLOW SECRETIONS OROPHARYNX SUCTION FOR LARGE THICK PALE YELLOW TO CLOUDY SECRETIONS AIRWAY PATENT
--- NOTE | 2019-06-11 12:51 | NUR ---
DR. BOND AT BEDSIDE REVIEWING PLAN OF CARE WITH PATIENT. SCHEDULED MEDICATIONS DUE GIVEN. WILL CONTINUE TO MONITOR.
[2019-06-11] MEDS ORDERED: LIDOCAINE MPF 1% 0 ML ONE (13:01)
--- NOTE | 2019-06-11 13:32 | NUR ---
PATIENT PRESENTING WITH INCREASED SOB POST PATIENT PHYSICAL HYGIENE AND REPOSITION GOOD CHEST RISE DEEP TRACHEAL SUCTION FOR SMALL SEMI THICK PALE YELLOW SECRETIONS OROPHARYNX SUCTION FOR THICK CLOUDY WITH PALE YELLOW SECRETIONS AIRWAY PATENT
--- NOTE | 2019-06-11 14:10 | NUR ---
DR. BOND AT BEDSIDE PERFORM BEDSIDE DEBRIDEMENT. PATIENT TOLERATED WELL. WILL CONTINUE TO MONITOR.
--- NOTE | 2019-06-11 15:16 | NUR ---
RESTING WELL GOOD CHEST RISE DEEP TRACHEAL SUCTION FOR SMALL THIN PALE YELLOW SECRETIONS OROPHARYNX SUCTION FOR LARGE THIN PALE YELOOW TO CLOUDY SECRETIONS AIRWAY PATENT
--- NOTE | 2019-06-11 17:00 | NUR ---
PERFORMED ORAL CARE. PT TOLERATED WELL WILL CONTINUE TO MONITOR.
--- NOTE | 2019-06-11 17:25 | NUR ---
NO INDICATIONS OF PULMONARY DISTRESS NOTED EQUAL CHEST RISE DEEP TRACHEAL SUCTION FOR SMALL THIN PALE YELLOW SECRETIONS OROPHARYNX SUCTION FOR LARGE THIN PALE YELLOW TO CLOUDY SECRETIONS AIRWAY PATENT
--- NOTE | 2019-06-11 18:28 | NUR ---
MEDICATIONS DUE GIVEN. SAFETY MEASURES IN PLACE AND CALL LIGHT WITHIN REACH. WILL CONTINUE TO MONITOR.
--- NOTE | 2019-06-11 19:15 | NUR ---
RECEIVED REPORT FROM DAY SHIFT NURSE. PATIENT IN BED. TRACH CONNECTED TO VENT. IVF PATENT AND INFUSING WELL. G-TUBE FEEDING RUNNING WELL. GIVENS CATHETER INTACT AND DRAINING WELL. NO SIGNS OF DISTRESS NOTED AT THIS TIME. FLACC 0. SAFETY MEASURES IN PLACE. BED IN LOW POSITION, SIDE RAILS RAISED. PATIENT KEPT COMFORTABLE. PLAN OF CARE DISCUSSED. WILL CONTINUE TO MONITOR.
--- NOTE | 2019-06-11 19:22 | NUR ---
REPORTED TO NIGHT NURSE. PT IS STABLE.
--- NOTE | 2019-06-11 21:10 | NUR ---
ROUNDS DONE. SUCTIONED PATIENT. SCANT AMOUNT OF SPUTUM OBTAINED. G-TUBE RESIDUAL OF 5ML NOTED. SCHEDULED MEDICATIONS TOLERATED WELL. NO S/SX OF DISTRESS NOTED. SAFETY MEASURES IN PLACE. BED IN LOW POSITION, SIDE RAILS RAISED, BED ALARM ON. WILL CONTINUE TO MONITOR.
--- NOTE | 2019-06-11 22:16 | NUR ---
ROUNDS DONE. PATIENT COUGHING. SUCTIONED MOUTH AND TRACH. MODERATE SPUTUM OBTAINED. O2 SAT 98%. NO SIGNS OF DISTRESS NOTED. WILL CONTINUE TO MONITOR
[2019-06-12] VITALS (7 sets, daily range): BP systolic 113–120; BP diastolic 66–78
[2019-06-12] MEDS: PIPERACILLIN/TAZOBACTAM 3.375 GM in DEXTROSE 5% 50 ML IV SCH ×5 (00:12→23:28)
--- NOTE | 2019-06-12 00:13 | NUR ---
SCHEDULED MEDICATIONS GIVEN. VITAL SIGNS STABLE AT THIS TIME. O2 SAT 98%. TRACH CONNECTED TO VENT. IVF INFUSING WELL. FC DRAINING WELL. NO SIGNS OF DISTRESS NOTED. SAFETY MEASURES IN PLACE. BED IN LOW POSITION, BED ALARM ON, SIDERAILS RAISED. WILL CONTINUE TO MONITOR.
--- NOTE | 2019-06-12 02:10 | NUR ---
ROUNDS DONE. PATIENT IN BED WITH TRACH CONNECTED TO VENT. PATIENT COUGHING. SUCTIONED ORALLY. MODERATE AMOUNT OF SECRETIONS OBTAINED. TRACH SUCTIONED WELL, BUT NO SECRETIONS PRESENT. O2 SAT 98%. NO SIGNS OF DISTRESS NOTED. SAFETY MEASURES IN PLACE. WILL CONTINUE TO MONITOR.
[2019-06-12] MEDS: VANCOMYCIN 750 MG in DEXTROSE 5% 250 ML IV SCH (04:23)
--- NOTE | 2019-06-12 04:53 | NUR ---
ROUNDS DONE. VITALS TAKEN. TRACH CONNECTED TO VENT. VITALS WITHIN NORMAL LIMITS. SCHEDULED MEDICATIONS GIVEN. SUCTIONING DONE. ORAL CARE GIVEN. FEEDING AND FEEDING TUBE CHANGED. GIVENS CATH CARE PROVIDED. WOUND CLEANED, DRESSING CHANGED. PATIENT TOLERATED ALL PROCEDURES DONE. NO S/SX OF DISTRESS NOTED. O2 SAT 97%. SAFETY MEASURES IN PLACE. BED IN LOW POSITION, SIDE RAILS RAISED, BED ALARM ON. KEPT COMFORTABLE. WILL CONTINUE TO MONITOR.
[2019-06-12] MEDS: INSULIN LISPRO SLIDING SCALE 100 UNITS/ML VIAL SUBQ PRN ×2 (06:21→16:49)
[2019-06-12] MEDS: BLOOD GLUCOSE MONITORING 1 DEV DEV FS SCH ×4 (06:50→20:47)
[2019-06-12] MEDS: ALBUTEROL SULFATE/IPRATROPIU 3 ML SOL IH SCH ×3 (07:16→20:44)
--- NOTE | 2019-06-12 07:18 | NUR ---
ENDORSED PATIENT TO DAYSHIFT NURSE. PATIENT IN STABLE CONDITION.
--- NOTE | 2019-06-12 07:21 | NUR ---
RECEIVED REPORT FROM DAY SHIFT NURSE. RECEIVED PT IN BED. NO APPARENT DISTRESS, NO GRIMACING, NO WITHDRAWAL, ON TRACH TO VENT. IV ON LFA 20G AND RFA 22G. IVF ORDERED, INFUSING WELL. G-TUBE FEEDING. TOLERATING WELL. GIVENS CATHETER INTACT AND PATENT. DRAINING WELL. FALL PRECAUTIONS IN PLACE. BED IN LOW POSITION, SIDE RAILS RAISED. PATIENT KEPT COMFORTABLE. WILL CONTINUE TO MONITOR.
--- NOTE | 2019-06-12 07:36 | NUR ---
recived pt on vent with settings as charted reath sounds present bilat coarse sxn pt with min amt off white secs trach site secure ambu bag at bedside vent plugged into red outlet will continue to monitor pt on vent
[2019-06-12 07:41] LABS: MAGNESIUM 1.9 mg/dL (1.8-2.4); PHOSPHORUS 3.1 mg/dL (2.5-4.9)
[2019-06-12 07:43] LABS: ANION GAP 10.4 (8-16); CARBON DIOXIDE 30.1 mmol/L (21-32); CREATININE 0.6 mg/dL (0.6-1.3); POTASSIUM 3.5 mmol/L (3.5-5.1)
[2019-06-12 07:45] LABS: BASOPHILS % (AUTO) 0.5 % (0.0-2.0); EOSINOPHILS # (AUTO) 0.2 K/uL (0-0.4); EOSINOPHILS % (AUTO) 2.1 % (0.0-4.0); HEMOGLOBIN 8.1 g/dL (12.0-18.0); LYMPHOCYTES # (AUTO) 1.2 K/uL (2.0-11.5); LYMPHOCYTES % (AUTO) 12.9 % (20.5-51.1); MEAN CORPUSCULAR HEMOGLOBIN 26 pg (27-31); MEAN CORPUSCULAR HGB CONC 31 g/dL (33-37); MEAN CORPUSCULAR VOLUME 83.3 fL (80-94); MONOCYTES # (AUTO) 0.5 K/uL (0.8-1.0); MONOCYTES % (AUTO) 5.7 % (1.7-9.3); NEUTROPHILS # (AUTO) 7.5 K/uL (1.8-7.7); NEUTROPHILS % (AUTO) 78.8 % (42.2-75.2); PLATELET COUNT (AUTO) 341 K/uL (140-450); RED BLOOD CELL COUNT(AUTO) 3.11 MIL/uL (4.20-6.10); RED CELL DISTRIBUTION WIDTH 17.2 % (11.6-13.7); WHITE BLOOD COUNT (AUTO) 9.6 K/uL (4.8-10.8)
[2019-06-12 08:06] LABS: FOLIC ACID 11.1 ng/mL (>3.0)
[2019-06-12] MEDS: LACTOBACILLUS RHAMNOSUS GG 1 EACH CAP PO SCH (08:11)
[2019-06-12] MEDS: DOCUSATE 100 MG/10 ML UDC GT SCH ×2 (08:11→20:47)
[2019-06-12] MEDS: levETIRAcetam 100 MG/ML ORASYR GT SCH ×2 (08:11→20:47)
[2019-06-12] MEDS: FAMOTIDINE 20 MG TAB GT SCH (08:12)
[2019-06-12] MEDS: ZINC SULF 220 MG CAP GT SCH (08:12)
[2019-06-12] MEDS: FERROUS SULFATE 325 MG TABEC PO SCH (08:12)
[2019-06-12] MEDS: METOPROLOL 50 MG TAB GT SCH ×3 (08:12→17:22)
[2019-06-12] MEDS: ASCORBIC ACID 500 MG TAB GT SCH ×2 (08:12→20:47)
[2019-06-12] MEDS: INSULIN NPH HUMAN ISOPHANE 100 UNIT/ML VIAL SUBQ SCH ×2 (08:14→20:55)
--- NOTE | 2019-06-12 08:30 | NUR ---
DUE MORNING MEDS GIVEN ORDERED VIA GTUBE. GTUBE INTACT AND PATENT WITH 10CC RESIDUAL. TOLERATED WELL.
--- NOTE | 2019-06-12 08:55 | NUR ---
PATIENT HAS BEEN SCREENED AND CATEGORIZED HIGH NUTRITION RISK. PATIENT WILL BE SEEN WITHIN 1-2 DAYS OF ADMISSION. 06/11/19 06/12/[address]
--- NOTE | 2019-06-12 09:30 | NUR ---
UNABLE TO PLACE PT ON CPAP AT THIS TIME PT WITH LABORED BREATHING TACHYPNEIC RN AWARE
--- NOTE | 2019-06-12 10:15 | NUR ---
PT IN BED. EYES OPEN. IN STABLE CONDITION. WILL CONT TO MONITOR
--- NOTE | 2019-06-12 11:20 | NUR ---
BLOOD SUGAR CHECKED, 138. NO ACTION NEEDED. ZOSYN IVPB GIVEN ORDERED. IV INTACT AND PATENT. INFUSING WELL
--- NOTE | 2019-06-12 11:45 | NUR ---
GTUBE FEEDING RATE CHANGED TO 65 ORDERED.
--- NOTE | 2019-06-12 12:16 | NUR ---
06/12/19 RD INITIAL ASSESSMENT COMPLETED PLEASE REFER TO NUTRITION ASSESSMENT UNDER CARE ACTIVITY FOR ESTIMATED NUTRITIONAL NEEDS. RD RECOMMENDATIONS: 1. RECOMMEND GLUCERNA 1.2 @ 65 ML/HR - THIS WILL PROVIDE 1872 CALORIES, 93.6 CALORIES WHICH WILL PROVIDE 100% OF ESTIMATED NEEDS. 2. CONTINUE 165 ML FREE H20 FLUSH Q6H 3. RD TO FOLLOW-UP 2-3 DAYS, HIGH RISK LOREN RODRIGUEZ RD
--- NOTE | 2019-06-12 13:30 | NUR ---
DUE METOPROLOL GIVEN ORDERED. BP 116/78
[2019-06-12] MEDS: NACL 0.9% 1,000 ML IV SCH (15:16)
[2019-06-12] MEDS: VANCOMYCIN 1,000 MG in DEXTROSE 5% 250 ML IV SCH (15:49)
--- NOTE | 2019-06-12 16:02 | NUR ---
DUE VANCOCIN IVPB GIVEN ORDERED. INFUSING WELL
--- NOTE | 2019-06-12 17:27 | NUR ---
PT UNABLE TO JANETTE CPAP RETURNED TO AC WITH LABORED BREATHING DR AT BEDSIDE ETT SECURE BRESTH SOUNDS PRESENT BILAT COARSE SXN PT WITH MIN AMT YELLOWISH SECS AMBU BAG AT BEDSIDE VENT PLUGGED INTO RED OUTLET
--- NOTE | 2019-06-12 17:53 | NUR ---
CONTINUED TO MONITOR PT ON VENT WITH SETTINGS CHARTED SXN PT WITH MIN TO MOD AMT SECS BRATH SOUNDS PRESENT BILAT COAARSE TRACH SITE SECURE AMBU BAG BEDSIDE VENT PLUGGD INTO RED OUTLET
--- NOTE | 2019-06-12 19:04 | NUR ---
ENDORSED TO SPRAY MACHINE LOADER NURSE FOR CONTINUITY OF CARE. PT IN STABLE CONDITION
--- NOTE | 2019-06-12 19:05 | NUR ---
RECEIVED REPORT FROM DAY SHIFT NURSE. PATIENT LYING IN BED. TRACH CONNECTED TO VENT. IVF INFUSING WELL. G-TUBE IN PLACE. GIVENS CATHETER INTACT AND INFUSING WELL. NO SIGNS OF DISTRESS NOTED. O2 SAT 98%. PLAN OF CARE DISCUSSED. WILL CONTINUE TO MONITOR.
--- NOTE | 2019-06-12 20:50 | NUR ---
ROUNDS DONE. PATIENT IN BED. TRACH CONNECTED TO VENT. VITAL SIGNS STABLE. O2 SAT 100%. GTUBE RESIDUAL 10ML. SCHEDULED MEDS GIVEN ORDERED. BLOOD SUGAR 135. NO COVERAGE NEEDED. PATIENT REPOSITIONED. KEPT COMFORTABLE. WILL CONTINUE TO MONITOR.
--- NOTE | 2019-06-12 22:28 | NUR ---
PATIENT IN SEMIFOWLERS POSITION SLEEPING. TRACH CONNECTED TO VENT. 02 SAT 100% RR 24. IVF INFUSING WELL. GTUBE FEEDING RUNNING. FC IN PLACE. NO S/SX OF DISTRESS NOTED. SAFETY PRECAUTIONS OBSERVED. BED IN LOW POSITION, SIDE RAILS RAISED, BED ALARM ON. PATIENT KEPT COMFORTABLE. WILL CONTINUE TO MONITOR.
--- NOTE | 2019-06-12 23:31 | NUR ---
SCHEDULED MEDICATION GIVEN ORDERED. PATIENT IN BED SLEEPING. NO SIGNS OF DISTRESS NOTED. 02 SAT 99%. SAFETY MEASURES IN PLACE. WILL CONTINUE TO MONITOR.
[2019-06-13] VITALS: BP 126/75
[2019-06-13] MEDS: NACL 0.9% 1,000 ML IV SCH (01:47)
--- NOTE | 2019-06-13 02:00 | NUR ---
PATIENT IN BED. TRACH CONNECTED TO VENT. COUGHING NOTED. SUCTIONED ORALLY. MODERATE AMOUNT OF SECRETION OBTAINED. O2 SAT 99%. NO SIGNS OF DISTRESS NOTED. SAFETY MEASURES IN PLACE. KEPT COMFORTABLE. WILL CONTINUE TO MONITOR.
[2019-06-13] MEDS: VANCOMYCIN 1,000 MG in DEXTROSE 5% 250 ML IV SCH (03:47)
[2019-06-13 04:00] VITALS: BP 106/63
--- NOTE | 2019-06-13 04:28 | NUR ---
PATIENT IN BED, ON SEMI FOWLERS POSITION. TRACH CONNECTED TO VENT. COUGHING NOTED. SECRETIONS SUCTIONED. MODERATE AMOUNT OF SPUTUM COLLECTED. ORAL CARE PROVIDED AFTERWARDS. WOUND CLEANED AND DRESSING CHANGED. PERINEAL CARE PROVIDED WELL. GIVENS CATHETER CARE GIVEN. PATIENT TOLERATED ALL CARE PROVIDED. VITAL SIGNS STABLE. O2 SAT 100% RR 22. NO SIGNS OF DISTRESS NOTED. KEPT COMFORTABLE. SAFETY MEASURES IN PLACE. BED IN LOW POSITION, SIDE RAILS RAISED, BED ALARM ON. IVF INFUSING WELL. GTUBE FEEDING RUNNING. GIVENS CATH IN PLACE. WILL CONTINUE TO MONITOR.
[2019-06-13] MEDS: BLOOD GLUCOSE MONITORING 1 DEV DEV FS SCH ×4 (05:38→21:48)
[2019-06-13] MEDS: INSULIN LISPRO SLIDING SCALE 100 UNITS/ML VIAL SUBQ PRN ×2 (05:43→22:24)
[2019-06-13] MEDS: PIPERACILLIN/TAZOBACTAM 3.375 GM in DEXTROSE 5% 50 ML IV SCH (06:16)
[2019-06-13 06:21] LABS: BASOPHILS % (AUTO) 0.5 % (0.0-2.0); EOSINOPHILS # (AUTO) 0.2 K/uL (0-0.4); EOSINOPHILS % (AUTO) 2.8 % (0.0-4.0); HEMATOCRIT 27.3 % (36-52); HEMOGLOBIN 8.5 g/dL (12.0-18.0); LYMPHOCYTES # (AUTO) 1.1 K/uL (2.0-11.5); LYMPHOCYTES % (AUTO) 14.5 % (20.5-51.1); MEAN CORPUSCULAR HEMOGLOBIN 26 pg (27-31); MEAN CORPUSCULAR HGB CONC 31 g/dL (33-37); MONOCYTES # (AUTO) 0.4 K/uL (0.8-1.0); MONOCYTES % (AUTO) 5.4 % (1.7-9.3); NEUTROPHILS # (AUTO) 5.9 K/uL (1.8-7.7); NEUTROPHILS % (AUTO) 76.8 % (42.2-75.2); PLATELET COUNT (AUTO) 351 K/uL (140-450); RED CELL DISTRIBUTION WIDTH 17.4 % (11.6-13.7); WHITE BLOOD COUNT (AUTO) 7.7 K/uL (4.8-10.8)
[2019-06-13 06:32] LABS: CARBON DIOXIDE 27.8 mmol/L (21-32); CREATININE 0.6 mg/dL (0.6-1.3); POTASSIUM 3.8 mmol/L (3.5-5.1)
[2019-06-13 06:41] LABS: PHOSPHORUS 3.2 mg/dL (2.5-4.9)
--- NOTE | 2019-06-13 07:05 | NUR ---
ENDORSED PATIENT TO DAY SHIFT NURSE. PATIENT IN BED. HOB ELEVATED. TRACH CONNECTED TO VENT. IVF PATENT AND INFUSING WELL. GTUBE FEEDING RUNNING. FC INTACT AND DRAINING WELL. NO SIGNS OF DISTRESS NOTED SAFETY MEASURES IN PLACE. DISCUSSED PLAN OF CARE.
--- NOTE | 2019-06-13 07:06 | NUR ---
RECEIVED REPORT FROM DAY SHIFT NURSE. RECEIVED PT IN BED. NO APPARENT DISTRESS, NO GRIMACING, ON TRACH TO VENT. IV ON LFA 20G AND RFA 22G. IVF ORDERED, INFUSING WELL. G-TUBE FEEDING. TOLERATING WELL. GIVENS CATHETER INTACT AND PATENT. DRAINING WELL. FALL PRECAUTIONS IN PLACE. BED IN LOW POSITION, SIDE RAILS RAISED. PATIENT KEPT COMFORTABLE. WILL CONTINUE TO MONITOR.
[2019-06-13] MEDS: ALBUTEROL SULFATE/IPRATROPIU 3 ML SOL IH SCH ×3 (07:25→19:14)
--- NOTE | 2019-06-13 07:40 | NUR ---
RECEIVED TRACH PATIENT WITH PORTEX 8 ON VENT. SETTINGS FOUND ON AC/VC R14 VT450 PEEP 5 24% SUCTIONED SMALL/THIN CLEAR TO ECKERT SECRETIONS VENT ALARMS ON AND FUNCTIONING
[2019-06-13 07:47] VITALS: BP 118/78
[2019-06-13] MEDS: ASCORBIC ACID 500 MG TAB GT SCH ×2 (08:14→21:57)
[2019-06-13] MEDS: ZINC SULF 220 MG CAP GT SCH (08:14)
[2019-06-13] MEDS: FERROUS SULFATE 325 MG TABEC PO SCH (08:14)
[2019-06-13] MEDS: METOPROLOL 50 MG TAB GT SCH ×3 (08:14→17:20)
[2019-06-13] MEDS: levETIRAcetam 100 MG/ML ORASYR GT SCH ×2 (08:15→21:36)
[2019-06-13] MEDS: DOCUSATE 100 MG/10 ML UDC GT SCH ×2 (08:15→21:35)
[2019-06-13] MEDS: FAMOTIDINE 20 MG TAB GT SCH (08:15)
[2019-06-13] MEDS: LACTOBACILLUS RHAMNOSUS GG 1 EACH CAP PO SCH (08:15)
[2019-06-13] MEDS: INSULIN NPH HUMAN ISOPHANE 100 UNIT/ML VIAL SUBQ SCH ×2 (08:37→22:20)
--- NOTE | 2019-06-13 08:39 | NUR ---
DUE MORNING MEDS GIVEN VIA GT ORDERED. TOLERATED WELL
--- NOTE | 2019-06-13 09:00 | NUR ---
RIVET TESTER AT BEDSIDE CLEANING AND CHANGING PT. TOLERATED WELL. NO DISTRESS NOTED.
--- NOTE | 2019-06-13 09:52 | NUR ---
DISCHARGE PLANNING: THIS IS A 68 Y/O MALE PATIENT FROM [facility], WHO WAS BROUGHT IN DUE TO FEVER AND COUGH. 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 INITIAL DIAGNOSIS OF ASP PNA AND UTI. CURRENT LABS INCLUDE WBC 7.7, H/H 8.5/27.3, NA/K 140/3.8, BUN/CREA 13/0.6. NEGATIVE FOR INFLUENZA A AND B. ON MEROPENEM. CARDIO, ID AND PULMO CONSULTS IN PLACE. S/P I&D OF SACRAL ULCER. CXR SHOWED MILD BIBASILAR ATELECTASIS VERSUS INFILTRATE. DC PLAN BACK TO [facility] ONCE STABLE. Addendum: 06/14/19 at 1550 by Arleth Borrego CM DC PLANNING: SEEN BY DR BAXTER RECOMMENDED TO CONTINUE MEROPENEM THERAPY FOR URINE AND SPUTUM HAD PSEUDOMONAS AERUGINOSA , PULMO DR RON TO CONTINUE MECHANICAL VENTILATION , TRACHEOSTOMY CARE. DC PLAN TO GO BACK TO [facility] WHEN STABLE. CM TO FOLLOW. Addendum: 06/15/19 at 1018 by Ginna Loo Received an order to dc back to [facility] for iv antibiotics until june 28. Order sent to [facility]. Amparo of [facility] made aware. Contacted patient's cousin Abigail Ta at [phone], she stated she does not speak thai and to call Traci Murillo. Contacted Francine Murillo at [phone] to discuss dc planning and is in agreement to tell Abigail Ta. will follow up. Addendum: 06/15/19 at 1343 by Ginna Loo CM PER AMPARO FONTANA [facility], PATIENT CAN GO TO ROOM 3C UNDER DR. KLINE. PER NIKO FONTANA [facility] HISTORIC PRESERVATIONIST WILL BE AT 1500. PRIMARY ASHANTI PALUMBO AND DR. AMIN MADE AWARE. MEDICAL NECESSITY FORM FAXED TO [facility]. Addendum: 06/15/19 at 1508 by Ginna Loo CM RECEIVED A CALL FROM [facility], STATING THAT THEY NEED A COVID CLEARANCE FORM BECAUSE PATIENT CAME IN IN WITH FEVER AND RESPIRATORY FAILURE PRIOR TO ACCEPTING THE PATIENT BACK. I INFORMED HER THAT WE DID NOT TEST FOR COVID SINCE PATIENT DID NOT HAVE SYMPTOMS WHILE IN THE HOSPITAL. SHE SAID SHE WILL HAVE THEIR INFECTIOUS CONTROL NURSE CALL ME. DR. AMIN MADE AWARE, SHE STATED WE DID NOT TEST THE PATIENT SINCE PATIENT DID NOT HAVE ANY SYMPTOMS. CONTACTED MARIO, ABLE TO SPEAK TO SARANYA TO PLACE THE TRANSPORT TO WILL CALL. RECEIVED A CALL [facility], STATING THAT IT IS OK TO TRANSFER THE PATIENT BACK SINCE THEIR INFECTION NURSE SPOKE TO THE DOC ALREADY. CONTACTED MARIO, ABLE TO SPEAK TO LUCILA. SHE STATED HISTORIC PRESERVATIONIST WILL IN 45-60 MINS. PRIMARY RN LINWOOD MADE AWARE.
--- NOTE | 2019-06-13 11:17 | NUR ---
SUCTIONED THIN CLEAR TO YELLOW SECRETIONS.
--- NOTE | 2019-06-13 11:35 | NUR ---
BLOOD SUGAR CHECKED 139. NO COVERAGE NEEDED
[2019-06-13 12:00] VITALS: BP 126/78
[2019-06-13] MEDS: MEROPENEM 1,000 MG in NACL 0.9% 100 ML IV SCH ×2 (13:05→21:31)
--- NOTE | 2019-06-13 13:17 | NUR ---
DUE MEDS GIVEN. MEROPENEM GIVEN ORDERED. INFUSING WELL
--- NOTE | 2019-06-13 13:40 | NUR ---
WOUND CARE EVALUATION NOTE: REASON FOR EVALUATION: LOW PARVEEN SCALE AND SACRAL WOUND SKIN ASSESSMENT DONE WITH THIS 68 Y/O MALE PT [place] [facility] [place] [facility] WITH INITIAL DX FEVER AND COUGH X 1 DAY. PAST MEDICAL HX INCLUDES TRAUMATIC BRAIN INJURY WITH SUBARACHNOID HEMORRHAGE AND SUBDURAL HEMATOMA STATUS POST CRANIOTOMY, SEIZURE DISORDER, GERD AND DM. PT. ADMITTED WITH CHRONIC PRESSURE ULCER WOUNDS DEBRIDEMENT DONE. TRACH TO VENT AND G-TUBE. ALL ABOVE INFORMATION OBTAINED FROM ADMISSION H&P. PT IS AWAKE. SKIN IS WARM AND DRY, BLE NO HAIR GROWTH, NO EDEMA. DORSAL PEDAL PULSES PRESENT AND NORMAL. PLAN OF CARE DISCUSSED WITH PRIMARY RN. INTEGUMENTARY: -PRESSURE ULCER STAGE 4 ON SACROCOCCYX EXTENDED TO RIGHT AND LEFT INNER BUTTOCK, [id number], UNDERMINING 6-12 OCLOCK, 1CM, IRREGULAR WOUND SHAPE WOUND BED WITH 40% OF YELLOW SLOUGH TISSUE AND 60% OF GRANULATION TISSUE, MOIST, NO ODOR, WOUND EDGE FLAT, KRISTIN-WOUND SKIN PINK IN COLOR, MOIST AND DENUDED - PRESSURE ULCER UN-STAGEABLE, LEFT EAR 3X0.5CM BROWN SCAR WITH KRISTIN WOUND SKIN LIGHT PURPLE, SKIN INTACT -RIGHT AND LEFT HEELS THICK CALLUS WITH MULTIPLE FISSURE -RIGHT PARIETAL S/P CRANIOTOMY HEALED SURGICAL SCAR, SOFT NON- BULGING -TRACH SITE KRISTIN STOMA SKIN DRY AND CLEAN. SKIN INTACT. - GT SITE KRISTIN STOMA WITH SKIN INTACT. -RIGHT LOWER ABDOMEN OLD HEALED SCAR HARD TO TOUCH RECOMMENDATIONS: -PAINT LEFT EAR WITH BETADINE SOLUTIONS BID AND NICANOR, OFFLOADING LEFT EAR -CLEANSE SACRALCOCCYX, R/L BUTTOCKS WOUND CLEANSING SOLUTION AND PACK WOUND WITH THERAHONEY GEL AND ADAPTIC DRESSING COVER WITH DRY DRESSING QD AND PRN IF SOILING -APPLY HEEL PROTECTORS TO BOTH HEELS AT ALL TIMES -OFFLOAD BILATERAL HEELS BY PLACING PILLOWS UNDER CALVES UNLESS OTHERWISE CONTRAINDICATED -PRESSURE REDISTRIBUTION SURFACE THERAPY -TURN AND REPOSITION Q2H, OFFLOAD SACRALCOCCYX AND LEFT EAR BY POSITIONING WITH PILLOW RIGHT AND LEFT -CONTINUE TO FOLLOW RD RECOMMENDATIONS ALL ABOVE RECOMMENDATIONS DISCUSSED WITH PRIMARY RN. WILL FOLLOW UP PT Q7-10 DAYS. PLEASE CONTACT WOUND CARE NURSE FOR ANY QUESTION AND CHANGE OF WOUND CONDITION.
[2019-06-13 16:00] VITALS: BP 118/79
--- NOTE | 2019-06-13 17:24 | NUR ---
PATIENT REMAINS ON DOCUMENTED VENT SETTINGS VENT ALARMS ON AND FUNCTIONING PATIENT IN NO DISTRESS HME WAS CHANGED
--- NOTE | 2019-06-13 19:10 | NUR ---
ENDORSED TO TERRAZZO JOURNEYMAN NURSE FOR CONTINUITY OF CARE. PT IN STABLE CONDITION
--- NOTE | 2019-06-13 19:30 | NUR ---
RECEIVED PATIENT TRACH TO MECHANICAL VENTILATOR AT DOCUMENTED SETTINGS. VENT PLUGGED INTO RED OUTLET WITH WHEELS LOCKED. VENT ALARMS ON AND AUDIBLE. PT ON CONTINUOUS PULSE OXIMETER. PULSE OX ON AND FUNCTIONING WITH ALARMS ON AND AUDIBLE. SCHEDULED BREATHING TREATMENT ADMINISTERED. TOLERATED TX WELL WITHOUT ADVERSE SIDE EFFECTS. AIRWAY SECURE AND PATENT. SUCTIONED MODERATE AMOUNT OF THICK, YELLOW SECRETIONS. AMBU BAG AT [facility]. NO ACUTE RESPIRATORY DISTRESS NOTED AT THIS TIME. WILL CONTINUE TO MONITOR. Addendum: 06/13/19 at 1935 by Natasha Faust RT ORAL VAP CARE DONE.
--- NOTE | 2019-06-13 19:31 | NUR ---
RECEIVED PT FROM JACQUE RN PT O HOB 35 DEGREE TRACH TO PABLITO DEPENDENT SETTING TV 450 FI02 24% PEEP 5 RR 22, , ON TELE SR G TUBE FEEDING RESIDUA; 10 ML, IV ON RT FA INFUSING WELL, GIVENS CATH DRAINING WELL YELLOW URINE REPOSITIONED INITIAL ASSESSMENT DONE
[2019-06-13 20:00] VITALS: BP 125/76
--- NOTE | 2019-06-13 22:00 | NUR ---
BLOOD SUGAR TEST 161 COVERAGE WITH 2 UNITS HUMALOG FSUBQ FOLLOW PROTOCOL PT ON TELE SR
[2019-06-14] VITALS: BP 118/60
--- NOTE | 2019-06-14 | NUR ---
HOB 35 DEGREE ORAL CARE GIVEN WITH VAP KIT SUCTIONED NECESSARY, REPOSITIONED Q2H
[2019-06-14] MEDS: NACL 0.9% 1,000 ML IV SCH ×2 (00:36→17:21)
--- NOTE | 2019-06-14 02:30 | NUR ---
PT TRACH TO VENT REMAIN STABLE NOT SOB NOTED , REPOSITIONED Q2H ON TELE ST
[2019-06-14 04:00] VITALS: BP 115/89
--- NOTE | 2019-06-14 04:30 | NUR ---
SPONGE BATH GIVEN LINEN CHANGED G TUBE FEEDING WELL TOLERATED IV INFUSING WELLMON RT FA, TRACH TO VENT REMAIN SAME SETTING, PT ON TELEMETRY ST
[2019-06-14] MEDS: MEROPENEM 1,000 MG in NACL 0.9% 100 ML IV SCH ×3 (04:38→20:23)
[2019-06-14 06:24] LABS: BASOPHILS % (AUTO) 0.5 % (0.0-2.0); EOSINOPHILS # (AUTO) 0.2 K/uL (0-0.4); EOSINOPHILS % (AUTO) 1.5 % (0.0-4.0); HEMATOCRIT 27.8 % (36-52); HEMOGLOBIN 8.6 g/dL (12.0-18.0); LYMPHOCYTES # (AUTO) 1.7 K/uL (2.0-11.5); LYMPHOCYTES % (AUTO) 17.1 % (20.5-51.1); MEAN CORPUSCULAR HEMOGLOBIN 26 pg (27-31); MEAN CORPUSCULAR HGB CONC 31 g/dL (33-37); MEAN CORPUSCULAR VOLUME 83.2 fL (80-94); MONOCYTES # (AUTO) 0.7 K/uL (0.8-1.0); MONOCYTES % (AUTO) 6.6 % (1.7-9.3); NEUTROPHILS # (AUTO) 7.4 K/uL (1.8-7.7); NEUTROPHILS % (AUTO) 74.3 % (42.2-75.2); PLATELET COUNT (AUTO) 385 K/uL (140-450); RED BLOOD CELL COUNT(AUTO) 3.34 MIL/uL (4.20-6.10); RED CELL DISTRIBUTION WIDTH 17.5 % (11.6-13.7)
[2019-06-14] MEDS: ALBUTEROL SULFATE/IPRATROPIU 3 ML SOL IH SCH ×3 (06:39→20:01)
[2019-06-14 06:42] LABS: ANION GAP 13.2 (8-16); CARBON DIOXIDE 27.7 mmol/L (21-32); CREATININE 0.7 mg/dL (0.6-1.3); POTASSIUM 3.9 mmol/L (3.5-5.1)
[2019-06-14 06:48] LABS: MAGNESIUM 1.8 mg/dL (1.8-2.4)
[2019-06-14] MEDS: BLOOD GLUCOSE MONITORING 1 DEV DEV FS SCH ×4 (06:56→20:12)
--- NOTE | 2019-06-14 06:56 | NUR ---
PT WILL BE ENDORSED TO DAY SHIFT NURSE FOR CONTINUE OF CARE , PT REMAIN TRACH TO PABLITO SAME SETTING NOT SOB NOTED ON TELEMETRY SR.
--- NOTE | 2019-06-14 07:10 | NUR ---
RECEIVED BEDSIDE REPORT FROM NIGHTSHIFT NURSE. PT RESTING IN BED. FLACC 0. RESPIRATIONS EVEN AND UNLABORED WITH NO SOB OR RESPIRATORY DISTRESS. SKIN WARM AND DRY TO TOUCH. GIVENS CATHETER IS DRAINING CLEAR, YELLOW URINE WITHOUT COMPLICATIONS. IV SITE IN RFA 20G AND L HAND 20G IS CLEAN, DRY, AND INTACT. SAFETY MEASURES IN PLACE. WILL CONTINUE TO MONITOR.
[2019-06-14 08:00] VITALS: BP 122/70
[2019-06-14] MEDS: INSULIN NPH HUMAN ISOPHANE 100 UNIT/ML VIAL SUBQ SCH ×2 (08:59→20:20)
[2019-06-14] MEDS: DOCUSATE 100 MG/10 ML UDC GT SCH ×2 (09:02→20:24)
[2019-06-14] MEDS: LACTOBACILLUS RHAMNOSUS GG 1 EACH CAP PO SCH (09:03)
[2019-06-14] MEDS: FAMOTIDINE 20 MG TAB GT SCH (09:03)
[2019-06-14] MEDS: ZINC SULF 220 MG CAP GT SCH (09:04)
[2019-06-14] MEDS: ASCORBIC ACID 500 MG TAB GT SCH ×2 (09:04→20:24)
[2019-06-14] MEDS: METOPROLOL 50 MG TAB GT SCH ×3 (09:05→16:58)
[2019-06-14] MEDS: levETIRAcetam 100 MG/ML ORASYR GT SCH ×2 (09:05→20:24)
[2019-06-14] MEDS: FERROUS SULFATE 325 MG TABEC PO SCH (09:07)
--- NOTE | 2019-06-14 09:17 | NUR ---
ADMINISTERED SCHED MED PRESCRIBED PER MD ORDER. PT TOLERATED WELL. MEDICATION EDUCATION PERFORMED. PT APHASIC AND UNABLE TO VERBALIZE UNDERSTANDING. SAFETY MEASURES IN PLACE. WILL CONTINUE TO MONITOR.
--- NOTE | 2019-06-14 11:01 | NUR ---
06/14/19 RD FOLLOW UP COMPLETED PLEASE REFER TO NUTRITION ASSESSMENT UNDER CARE ACTIVITY FOR ESTIMATED NUTRITIONAL NEEDS. 1. CONTINUE GLUCERNA 1.2 @ 65 ML/HR X 24 HR - THIS WILL PROVIDE 1872 CALORIES, 93.6 CALORIES, WHICH WILL PROVIDE 100% OF ESTIMATED NUTRIENT NEEDS. 2. CONTINUE 165 ML FREE H20 FLUSH Q6H 3. CONTINUE VITAMIN C AND ZINC SUPPLEMENTATION FOR WOUND HEALING 4. RD TO FOLLOW-UP 2-3 DAYS, HIGH RISK TAM ISLAS RD
--- NOTE | 2019-06-14 11:05 | NUR ---
HOURLY ROUNDING. PT RESTING IN BED. FLACC 0. RESPIRATIONS EVEN AND UNLABORED WITH NO SOB OR RESPIRATORY DISTRESS. SKIN WARM AND DRY TO TOUCH. SAFETY MEASURES IN PLACE. WILL CONTINUE TO MONITOR.
--- NOTE | 2019-06-14 11:30 | NUR ---
PT BLOOD SUGAR IS 97. NO INSULIN NEEDED AT THIS TIME. SAFETY MEASURES IN PLACE. WILL CONTINUE TO MONITOR
[2019-06-14 12:00] VITALS: BP 125/75
--- NOTE | 2019-06-14 12:20 | NUR ---
HOURLY ROUNDING.PT RESTING IN BED. FLACC 0. RESPIRATIONS EVEN AND UNLABORED WITH NO SOB OR RESPIRATORY DISTRESS. SKIN WARM AND DRY TO TOUCH. SAFETY MEASURES IN PLACE. WILL CONTINUE TO MONITOR.
[2019-06-14] MEDS: THERAHONEY GEL 42.5 GM TP SCH (13:09)
[2019-06-14] MEDS: GAUZE TP SCH (13:09)
[2019-06-14 16:00] VITALS: BP 113/64
--- NOTE | 2019-06-14 16:30 | NUR ---
PATIENT BLOOD SUGAR IS 78. NO INSULIN COVERAGE NEEDED AT THIS TIME. SAFETY MEASURES IN PLACE. WILL CONTINUE TO MONITOR
--- NOTE | 2019-06-14 18:50 | NUR ---
PT STILL HAS ADMITTING PAPERWORK TO SIGN. TRIED TO GET A HOLD OF PT CONTACT NADEGE CORREA ([place]) BUT THE PHONE NUMBER IS NOT WORKING ([phone]) BECAUSE IT SOUNDS DISCONNECTED. CALLED ADMITTING AND SPOKE WITH GIULIANA TO LET HER KNOW ABOUT THE UPDATE. WILL ENDORSE TO NIGHTSHIFT
--- NOTE | 2019-06-14 19:05 | NUR ---
ENDORSED AT BEDSIDE TO NIGHTSHIFT NURSE. PT RESTING IN BED. FLACC 0. RESPIRATIONS EVEN AND UNLABORED WITH NO SOB OR RESPIRATORY DISTRESS. SKIN WARM AND DRY TO TOUCH. SAFETY MEASURES IN PLACE. PT IS STABLE
--- NOTE | 2019-06-14 19:06 | NUR ---
RECEIVED BEDSIDE REPORT FROM DAY RN. PT RESTING IN BED IS AAOX0. RESPONDS TO MINIMAL PAIN STIMULI. FLACC 0. RESPIRATIONS EVEN AND UNLABORED WITH NO SOB OR RESPIRATORY DISTRESS. PT IS TRACH TO VENT. VENT SETTINGS: FIO2 24% VT 450 RR 14 FLOW 50 PEEP 5 PT RR 28 SAT 100%. SKIN WARM AND DRY TO TOUCH. GIVENS CATHETER IS DRAINING CLEAR, YELLOW URINE WITHOUT COMPLICATIONS. IV SITE IN RFA 20G IVF PER ORDERS, DRESSING IS DRY, AND INTACT. HOB ELEVATED. PT HAS G-TUBE WITH GLUCERNA 1.2 AT 65ML/H. PT WITH ULCER ON SACRAL BEING PACKED WITH THERA HONEY DRESSING IS C/D/I. WOUND ON L EAR APPLYING BETADINE AND NICANOR. PT IS S/P R CRANIOTOMY WITH FLAP ON RLQ. ALL SAFETY MEASURES ARE IN PLACE. WILL CONTINUE TO MONITOR.
[2019-06-14 19:35] VITALS: BP 98/58
--- NOTE | 2019-06-14 20:01 | NUR ---
RECEIVED REPORT FROM AM SHIFT. PATIENT TRACH TO VENT WITH PORTEX SIZE 8 AND SECURED WITH TRACH TIE. PATIENT ON VENT SETTINGS AC/VC RR 14, VT 450, PEEP 5, FiO2 24%. VENT PLUGGED IN RED OUTLET, ALARMS SET AND AUDIBLE, BVM AT BEDSIDE, AND HOB > 30 DEGREES. PATIENT APPEARS TO BE IN NO APPARENT RESPIRATORY DISTRESS AT THIS TIME: RR 18, HR 97, AND SPO2 98% ON 24% FiO2. UPPER LOBES: COARSE BILATERAL BREATH SOUNDS LOWER BASES: COARSE BILATERAL BREATH SOUNDS SUCTION MODERATE AMOUNT OF YELLOW THICK SECRETIONS FROM TRACHEAL TUBE. HHN TX WAS GIVEN ORDERED AND PT TOLERATED TX WELL WITH NO ADVERSE REACTION. PT WAS ALSO INFORMED TO CALL RN OR AGILE SCRUM COACH WHEN EXPERIENCING SOB FOR PRN TX. WILL CONTINUE TO MONITOR PT.
--- NOTE | 2019-06-14 20:23 | NUR ---
BG 125 GRAYSON HUMULIN N GIVEN PER ORDERS. PT ON TUBE FEEDING TOLERATING WELL LESS 10CC RESIDUAL. ALL GRAYSON MED GIVEN PER ORDERS. HOB ELEVATED. PT OPEN EYES TO VOICE PT IS APHASIC. SAFETY MEASURES ARE IN PLACE. WILL CONTINUE TO MONITOR.
--- NOTE | 2019-06-14 22:16 | NUR ---
PT IS RESTING COMFORTABLY IN BED WITH EYES CLOSED. CHEST RISE AND FALL NOTED. HOB ELEVATED. ALL SAFETY MEASURES ARE IN PLACE. WILL CONTINUE TO MONITOR.
--- NOTE | 2019-06-14 22:57 | NUR ---
NEW GLUCERNA 1.2 FEEDING STARTED PER ORDERS AT 65ML/H WITH FWF 165ML/Q6H. PT IS TOLERATING FEEDING WELL WITH <10CC RESIDUAL. HOB ELEVATED. SAFETY MEASURES ARE IN PLACE. WILL CONTINUE TO MONITOR.
[2019-06-15] VITALS: BP 128/81
--- NOTE | 2019-06-15 00:15 | NUR ---
VITAL SIGNS ARE WITHIN NORMAL LIMITS. HOB ELEVATED. SAFETY MEASURES ARE IN PLACE. WILL CONTINUE TO MONITOR.
--- NOTE | 2019-06-15 02:20 | NUR ---
MADE ROUNDS. PT IS SLEEPING COMFORTABLY IN BED WITH EYES CLOSED. CHEST RISE AND FALL NOTED. NO S/S OF DISTRESS.WILL CONTINUE TO MONITOR.
[2019-06-15 04:00] VITALS: BP 125/79
--- NOTE | 2019-06-15 04:10 | NUR ---
VITAL SIGNS ARE STABLE. NO S/S OF DISTRESS. PT WITH EYES CLOSED. CHEST RISE AND FALL. SAFETY MEASURES ARE IN PLACE. WILL CONTINUE TO MONITOR.
[2019-06-15] MEDS: MEROPENEM 1,000 MG in NACL 0.9% 100 ML IV SCH ×2 (04:28→12:39)
--- NOTE | 2019-06-15 05:13 | NUR ---
TRACH CARE COMPLETED AT THIS TIME. SUCTION SMALL YELLOW THICK SECRETIONS FROM TRACHEAL TUBE. PATIENT IN IN NO APPARENT RESPIRATORY DISTRESS AT THIS MOMENT. AIRWAY IS PATENT. TRACH IS SECURED. WILL CONTINUE TO MONITOR PT.
[2019-06-15] MEDS: BLOOD GLUCOSE MONITORING 1 DEV DEV FS SCH ×2 (06:10→11:42)
[2019-06-15] MEDS: NACL 0.9% 1,000 ML IV SCH (06:10)
--- NOTE | 2019-06-15 06:50 | NUR ---
PT IS SLEEPING COMFORTABLY IN BED WITH EYES CLOSED. CHEST RISE AND FALL NOTED. HOB ELEVATED. SAFETY MEASURES ARE IN PLACE. CALL LIGHT IS WITHIN REACH.
[2019-06-15] MEDS: ALBUTEROL SULFATE/IPRATROPIU 3 ML SOL IH SCH ×2 (06:54→13:00)
--- NOTE | 2019-06-15 06:54 | NUR ---
REC'D PT ON [place] VENT SETTINGS AC 14 VT 450 PEEP 5 FIO2 24% ALARMS ON AND AUDIBLE AND AMBU BAG AT SIDE OF VENT AND VENT IS PLUGGED INTO RED OUTLET, NO HHN GIVEN PT IS SLEEPING WITH NO SIGNS OF DISTRESS, B\S ARE COARSE BILATERALLY, SXN PT MODERATE AMT OF THICK YELLOW SECRETIONS, PT IS TRACH WITH PORTEX 8
[2019-06-15 07:36] LABS: BASOPHILS # (AUTO) 0.1 K/uL (0.00-0.22); BASOPHILS % (AUTO) 0.6 % (0.0-2.0); EOSINOPHILS # (AUTO) 0.1 K/uL (0-0.4); EOSINOPHILS % (AUTO) 1.3 % (0.0-4.0); HEMATOCRIT 28.5 % (36-52); HEMOGLOBIN 8.9 g/dL (12.0-18.0); LYMPHOCYTES # (AUTO) 2.1 K/uL (2.0-11.5); LYMPHOCYTES % (AUTO) 19.5 % (20.5-51.1); MEAN CORPUSCULAR HEMOGLOBIN 26 pg (27-31); MEAN CORPUSCULAR HGB CONC 31 g/dL (33-37); MEAN CORPUSCULAR VOLUME 83.5 fL (80-94); MONOCYTES # (AUTO) 0.7 K/uL (0.8-1.0); MONOCYTES % (AUTO) 6.2 % (1.7-9.3); NEUTROPHILS # (AUTO) 7.8 K/uL (1.8-7.7); NEUTROPHILS % (AUTO) 72.4 % (42.2-75.2); PLATELET COUNT (AUTO) 403 K/uL (140-450); RED BLOOD CELL COUNT(AUTO) 3.41 MIL/uL (4.20-6.10); RED CELL DISTRIBUTION WIDTH 17.8 % (11.6-13.7); WHITE BLOOD COUNT (AUTO) 10.8 K/uL (4.8-10.8)
[2019-06-15 07:46] LABS: ANION GAP 10.8 (8-16); CARBON DIOXIDE 28.4 mmol/L (21-32); CREATININE 0.7 mg/dL (0.6-1.3); POTASSIUM 4.2 mmol/L (3.5-5.1)
[2019-06-15 07:55] LABS: MAGNESIUM 2.1 mg/dL (1.8-2.4); PHOSPHORUS 3.3 mg/dL (2.5-4.9)
--- NOTE | 2019-06-15 07:57 | NUR ---
PICC LINE NURSE NOTIFIED OF ORDER FOR PICC LINE INSERTION. WILL CALL BACK TO GIVE ETA.
[2019-06-15] MEDS ORDERED: MERO1PDS7 IV (07:59)
[2019-06-15 08:00] VITALS: BP 129/79
[2019-06-15] MEDS ORDERED: LACT10CA1 PO (08:03)
[2019-06-15] MEDS: ZINC SULF 220 MG CAP GT SCH (08:19)
[2019-06-15] MEDS: ASCORBIC ACID 500 MG TAB GT SCH (08:19)
[2019-06-15] MEDS: LACTOBACILLUS RHAMNOSUS GG 1 EACH CAP PO SCH (08:19)
[2019-06-15] MEDS: DOCUSATE 100 MG/10 ML UDC GT SCH (08:19)
[2019-06-15] MEDS: METOPROLOL 50 MG TAB GT SCH ×2 (08:19→12:38)
[2019-06-15] MEDS: FAMOTIDINE 20 MG TAB GT SCH (08:19)
[2019-06-15] MEDS: levETIRAcetam 100 MG/ML ORASYR GT SCH (08:20)
[2019-06-15] MEDS: FERROUS SULFATE 325 MG TABEC PO SCH (08:20)
--- NOTE | 2019-06-15 08:30 | NUR ---
DUE MEDS GIVEN TOLERATED WELL. PT IN STABLE CONDITION
[2019-06-15] MEDS: INSULIN NPH HUMAN ISOPHANE 100 UNIT/ML VIAL SUBQ SCH (08:43)
--- NOTE | 2019-06-15 10:14 | NUR ---
FOLLOWED UP WITH PICC LINE NURSE. STILL AWAITING CALL BACK
--- NOTE | 2019-06-15 10:50 | NUR ---
PICC LINE NURSE CALLED BACK. WILL ARRIVE AROUND 1200
--- NOTE | 2019-06-15 11:00 | NUR ---
WOUND ASSESSMENT WAS DONE TO PT'S SACRAL WOUND, CLEANED WITH NS, PAT DRY, REINFORCED WITH ADAPTIC DRESSING, THERAHONEY AND OPTIFOAM DRESSING, PICTURE WAS TAKEN AND ATTACHED TO CHART.
--- NOTE | 2019-06-15 11:12 | NUR ---
INFORMED CONSENT FOR PICC LINE INSERTION OBTAINED FROM JOHNSON CORREA VIA PHONE WITH PIN PUSHER BILLY WOLFE AT [phone]. VERBALIZED UNDERSTANDING. CONFIRMED BY 2 NURSES
--- NOTE | 2019-06-15 11:42 | NUR ---
BLOOD GLUCOSE CHECK DONE TO PT AND RESULT IS 134 AND NO INSULIN COVERAGE NEEDED.
[2019-06-15 12:00] VITALS: BP 110/68
--- NOTE | 2019-06-15 12:50 | NUR ---
PICC LINE NURSE AND US TECH AT BEDSIDE FOR PICC LINE INSERTION. PT IN STABLE CONDITION.
[2019-06-15] MEDS: GAUZE TP SCH (13:13)
[2019-06-15] MEDS: THERAHONEY GEL 42.5 GM TP SCH (13:14)
--- NOTE | 2019-06-15 13:57 | NUR ---
CALLED [facility] AT [phone] AND GAVE REPORT TO ASHANTI GLEZ REGARDING THE TRANSFER BACK OF THE PT, INFORMED ASHANTI GLEZ THAT PT WILL BE PLACE IN 3- UNDER [facility] AND A PICC LINE WAS INSERTED TODAY FOR IV ANTIBIOTICS CONTINUATION OF MERREM 1000MG IV Q8H AND RN VERBALIZED UNDERSTANDING.
--- NOTE | 2019-06-15 16:25 | NUR ---
DISCHARGED PT TO [facility] VIA [facility] WITH [facility] TRANSPORT PERSONNEL, ON A TRACH TO VENT, G-TUBE AND PICC LINE INTACT AND IN PLACE, ON SALINE LOCKS, PT CANNOT COMPREHEND SO DISCHARGED TEACHING WAS NOT GIVEN. PT IS STABLE AT THIS TIME AND NO SIGN OF DISTRESS NOTED.
== END 2019-06-15 16:25 | DRG 720 ==
LOC: MED 11:55 → MTU 14:06
PROVIDERS: ADMIT General Practice; ATTEND General Practice
PROC: 5A1955Z Respiratory Ventilation, Greater than 96 Consecutive Hours (ICD-10-PCS; principal; 2019-06-10)
PROC: 0JB70ZZ Excision of Back Subcutaneous Tissue and Fascia, Open Approach (ICD-10-PCS; 2019-06-11)
PROC: 02HV33Z Insertion of Infusion Device into Superior Vena Cava, Percutaneous Approach (ICD-10-PCS; 2019-06-15)
PROC: B548ZZA Ultrasonography of Superior Vena Cava, Guidance (ICD-10-PCS; 2019-06-15)
DX: A41.9 Sepsis, unspecified organism (principal); J96.20 Acute and chronic respiratory failure, unspecified whether with hypoxia or hypercapnia; J69.0 Pneumonitis due to inhalation of food and vomit; E43 Unspecified severe protein-calorie malnutrition; L89.154 Pressure ulcer of sacral region, stage 4; Z99.11 Dependence on respirator [ventilator] status; I96 Gangrene, not elsewhere classified; L89.323 Pressure ulcer of left buttock, stage 3; R65.20 Severe sepsis without septic shock; E11.52 Type 2 diabetes mellitus with diabetic peripheral angiopathy with gangrene; G40.909 Epilepsy, unspecified, not intractable, without status epilepticus; I10 Essential (primary) hypertension; K21.9 Gastro-esophageal reflux disease without esophagitis; N39.0 Urinary tract infection, site not specified; D64.9 Anemia, unspecified; E11.65 Type 2 diabetes mellitus with hyperglycemia; R13.10 Dysphagia, unspecified; Z93.0 Tracheostomy status; Z68.20 Body mass index [BMI] 20.0-20.9, adult; Z87.820 Personal history of traumatic brain injury; Z93.1 Gastrostomy status; Z79.4 Long term (current) use of insulin; Z79.899 Other long term (current) drug therapy
CPT/HCPCS: 36415; 36600; 71045; 80048; 80053; 80202; 80305; 81001; 82607; 82728; 82746; 82803; 82948; 83036; 83540; 83605; 83690; 83735; 83880; 84100; 84134; 84443; 84484; 85025; 85045; 85610; 85730; 87040; 87070; 87081; 87086; 87186; 87205; 87804; 93005; 93925; 93970; 94002; 94003; 94640; 96365; 96367; 99285; C1751; J1644; J1815; J1956; J2001; J2185; J2543; J3370; J7030; J7060; Q0092

== ENCOUNTER 2019-07-11 10:13 | Emergency (ER) | payer MEDICAID, SELFPAY ==
[~2019-07-11] VITALS: Ht 170.2 cm; Wt 59.0 kg
[2019-07-11 10:13] VITALS: BP 125/78
[~2019-07-11 10:13] MED LIST changes: +ARGI4.5P3 PO; -FLUC100T PO; +INSU100S5 IJ; +LACT10CA1 PO; +MERO1PDS7 IV; +NUTR-583 PO; -PIPE1SOL IV; -VANC1PLA7 IV
[2019-07-11 10:15] VITALS: BP 125/78
[2019-07-11] MEDS ORDERED: VANCOMYCIN 1,000 MG in DEXTROSE 5% 250 ML IV ONE (10:15)
[2019-07-11] MEDS ORDERED: PIPERACILLIN/TAZOBACTAM 3.375 GM in DEXTROSE 5% 50 ML IV ONE (10:15)
[2019-07-11] MEDS ORDERED: NACL 0.9% 1,000 ML IV ONE (10:15)
[2019-07-11 10:55] LABS: BASOPHILS % (AUTO) 0.3 % (0.0-2.0); EOSINOPHILS # (AUTO) 0.1 K/uL (0-0.4); EOSINOPHILS % (AUTO) 0.9 % (0.0-4.0); HEMATOCRIT 29.3 % (36-52); LYMPHOCYTES % (AUTO) 15.3 % (20.5-51.1); MEAN CORPUSCULAR HEMOGLOBIN 25 pg (27-31); MEAN CORPUSCULAR HGB CONC 31 g/dL (33-37); MEAN CORPUSCULAR VOLUME 82.8 fL (80-94); MONOCYTES # (AUTO) 0.7 K/uL (0.8-1.0); MONOCYTES % (AUTO) 5.2 % (1.7-9.3); NEUTROPHILS # (AUTO) 10.1 K/uL (1.8-7.7); NEUTROPHILS % (AUTO) 78.3 % (42.2-75.2); PLATELET COUNT (AUTO) 385 K/uL (140-450); RED BLOOD CELL COUNT(AUTO) 3.53 MIL/uL (4.20-6.10); RED CELL DISTRIBUTION WIDTH 17.1 % (11.6-13.7); WHITE BLOOD COUNT (AUTO) 12.9 K/uL (4.8-10.8)
[2019-07-11] MEDS ORDERED: VANCOMYCIN 1,000 MG VIAL ONE (11:11)
[2019-07-11] MEDS ORDERED: PIPERACILLIN/TAZOBACTAM 3.375 GM VIAL IV ONE (11:11)
[2019-07-11 11:12] LABS: ALBUMIN 2.6 g/dL (3.4-5.0); ANION GAP 9.4 (8-16); CARBON DIOXIDE 34.5 mmol/L (21-32); CREATININE 0.6 mg/dL (0.6-1.3); POTASSIUM 3.9 mmol/L (3.5-5.1); TOTAL BILIRUBIN 0.2 mg/dL (0.0-1.0)
[2019-07-11 11:13] LABS: APPEARANCE,URINE SL CLOUDY (CLEAR); BILIRUBIN,URINE NEGATIVE (NEGATIVE); BLOOD, URINE TRACE-I (NEGATIVE); COLOR,URINE YELLOW (YELLOW); LEUKOCYTE ESTERASE ,URINE 3+ (NEGATIVE); NITRITE, URINE NEGATIVE (NEGATIVE); PH,URINE 7.5 (5.0-9.0); UGLUCOSE TRACE (NEGATIVE)
[2019-07-11] MEDS ORDERED: ACETAMINOPHEN 650 MG/20.3 ML UDC PO ONE (11:25)
[2019-07-11 11:31] LABS: RBC,URINE 0-5 /HPF (0-5)
[2019-07-11 11:32] LABS: C-REACTIVE PROTEIN QUANT 14.1 mg/dL (0.0-0.9)
[2019-07-11 11:35] LABS: RSV NEGATIVE (NEGATIVE)
[2019-07-11 11:41] LABS: LACTATE DEHYDROGENASE 122 U/L (85-227)
[2019-07-11 12:58] VITALS: BP 111/64
[2019-07-11 16:06] VITALS: BP 115/66
== END 2019-07-11 16:06 ==
LOC: MED 10:13 → EEVIPCON 10:13 → MED 16:06
DX: J69.0 Pneumonitis due to inhalation of food and vomit (principal); Z20.828 Contact with and (suspected) exposure to other viral communicable diseases; N39.0 Urinary tract infection, site not specified; G40.909 Epilepsy, unspecified, not intractable, without status epilepticus; E11.9 Type 2 diabetes mellitus without complications; I10 Essential (primary) hypertension; K21.9 Gastro-esophageal reflux disease without esophagitis; Z98.890 Other specified postprocedural states; Z79.4 Long term (current) use of insulin; Z79.899 Other long term (current) drug therapy
CPT/HCPCS: 36415; 36600; 71045; 71275; 80053; 81001; 82550; 82728; 82803; 83605; 83615; 83880; 84484; 85025; 85379; 85384; 85610; 85730; 86140; 87040; 87086; 87186; 87420; 87635; 87804; 93005; 96365; 96368; 99285; J2543; J3370; J7030; Q0092; Q9967